=== PATIENT | female | born 1945 | race Caucasian/White ===

== ENCOUNTER 2019-11-24 09:14 | Outpatient (CLI) | payer MEDICARE, SELFPAY ==
--- NOTE | 2019-11-24 11:00 | NEURO_ITS ---
Patient Number: [id number] Impression: # Complains of left 4th and 5th finger numbness. History of bilateral carpal tunnel release. 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 # No Carpal Tunnel Syndrome. # Needle/EMG exam mildly neurogenic in left 1st DI and ADM. Nerve Conduction Studies Anti Sensory Summary Table Stim Site NR Peak (ms) P-T Amp (?V) Site1 Site2 Delta-P (ms) Dist (cm) Feng (m/s) Left Median Anti Sensory (2-3nd Digit) Wrist 3.0 27.0 Wrist 2-3nd Digit 3.0 14.0 47 Wrist 3.1 55.0 Wrist 2-3nd Digit 3.0 14.0 47 Left Radial Anti Sensory (Base 1st Digit) Wrist 2.1 22.8 Wrist Base 1st Digit 2.1 0.0 Left Ulnar Anti Sensory (5th Digit) Wrist 3.2 37.7 Wrist 5th Digit 3.2 14.0 44 Motor Summary Table Stim Site NR Onset (ms) O-P Amp (mV) Site1 Site2 Delta-0 (ms) Dist (cm) Feng (m/s) Left Median Motor (Abd Poll Brev) Wrist 3.0 2.8 Elbow Wrist 5.4 31.0 57 Elbow 8.4 1.4 ELB/ADM Wrist 0.8 0.0 Left Ulnar Motor (Abd Dig Minimi) Wrist 3.0 4.2 A Elbow Wrist 6.6 31.0 47 A Elbow 9.6 1.6 B Elbow Wrist 3.6 24.0 67 B Elbow 6.6 2.9 F Wave Studies NR F-Lat (ms) L-R F-Lat (ms) Left Median (Mrkrs) (Abd Poll Brev) 29.33 Left Ulnar (Mrkrs) (Abd Dig Min) 30.03 EMG Side Muscle Nerve Root Ins Act Fibs Amp Dur Recrt Comment Left 1stDorInt Ulnar C8-T1 Nml Nml Nml Nml Nml Left Ext Indicis Radial (Post Int) C7-8 Nml Nml Nml Nml Nml Left Ext Digitorum Radial (Post Int) C7-8 Nml Nml Nml Nml Nml Left BrachioRad Radial C5-6 Nml Nml Nml Nml Nml Left PronatorTeres Median C6-7 Nml Nml Nml Nml Nml Left Abd Poll Brev Median C8-T1 Nml Nml Nml Nml Nml Left ABD Dig Min Ulnar C8-T1 Nml Nml Nml Nml Nml MTDD
== END 2019-11-24 09:15 | disposition home or self-care (01) ==
PROVIDERS: PCP Family Medicine; Visit Provider Physician Assistant Medical
DX: G56.22 Lesion of ulnar nerve, left upper limb (principal)
CPT/HCPCS: 95886; 95909

== ENCOUNTER → 2019-12-17 10:47 | Outpatient (CLI) | payer MEDICARE, SELFPAY ==
--- NOTE | ~2019-12-17 | CT_ITS ---
EXAMINATION: CT abdomen pelvis wo con DATE: 12/17/2019 11:00 INDICATION: Right-sided abdominal pain, microscopic hematuria TECHNIQUE: Computed tomography (CT) of the abdomen and pelvis was performed without intravenous contr ast. The dose-length product (DLP) was 474.91 mGy-cm. Automated exposure control and iterative recons truction technique were employed. COMPARISON: 10/27/2014 FINDINGS: Minimal dependent atelectasis is present in the lung bases. The heart size is normal. There is a moderate-sized sliding hiatal hernia. The liver, spleen, pancreas, and adrenal glands are severino l. A stone is present in the nondistended gallbladder. There is a 2.3 cm stone in the upper pole danielle saad of the right kidney. There is a 3 mm nonobstructing stone of the left kidney upper pole. No stone s are identified in the ureters or bladder. There is no hydronephrosis or hydroureter. Multiple pelvi c phleboliths are noted. No pathologically enlarged abdominal or pelvic lymph nodes are identified. T he appendix is normal. There is no free intraperitoneal gas or evidence of bowel obstruction. There i s severe lumbar spondylosis. IMPRESSION: 1. 2.3 cm calyceal stone in the right kidney upper pole. 2. Left nephrolithiasis. Reviewed, dictated and finalized at location A.
== END ==
PROVIDERS: PCP Family Medicine; Visit Provider Physician Assistant Medical
DX: N20.0 Calculus of kidney (principal)
CPT/HCPCS: 74176

== ENCOUNTER 2022-04-24 08:00 | Outpatient (NON) | payer MEDICARE, SELFPAY | END 2022-04-24 08:01 | disposition home or self-care (01) | LOC: ANHLAB 04-25 09:19 | PROVIDERS: PCP Family Medicine; Visit Provider Internal Medicine Gastroenterology | DX: R13.10 Dysphagia, unspecified (principal); K29.50 Unspecified chronic gastritis without bleeding | CPT/HCPCS: 88305 ==

== ENCOUNTER 2022-04-24 12:22 | Day surgery (SDC) | payer MEDICARE, SELFPAY ==
[2022-04-10 09:35] VITALS: BMI 27.0
--- NOTE | 2022-04-23 10:33 | WPDANESEPPF ---
Anes - Initial Pre Proc Eval Procedure: Operation Date: 04/24/22 14:00 Proposed Procedures p Esophagogastroduodenoscopy - Andrea Snachez MD Date/Time: 04/23/22 10:33 Surgeon: Andrea Sanchez MD Pre Op Diagnosis: Dysphagia Patient Data Age: 76 Gender: F Height: 1.75 m Weight: 83 kg Allergies Allergy/AdvReac Type Severity Reaction Status Date / Time albuterol Allergy Unknown unknown Verified 04/24/22 13:24 azithromycin Allergy Unknown Unknown Verified 04/24/22 13:24 iodine Allergy Unknown unk Verified 04/24/22 13:24 ioversol Allergy Unknown Unknown Verified 04/24/22 13:24 iron Allergy Unknown Unknown Verified 04/24/22 13:24 CONTRAST DYE Allergy Severe Unknown Uncoded 04/10/22 09:39 Home Medications Medication Instructions Recorded Confirmed Type levothyroxine 100 mcg tablet 100 mcg PO DAILY 04/08/19 04/10/22 History pantoprazole 40 mg tablet,delayed 40 mg PO QAM #30 tabs 04/24/22 Rx release Patient hx anesthesia problems: none Family hx anesthesia problems: none Results Review: All pre-operative results and documents have been reviewed as part of the pre-operative evaluation. [facility] [place] Past Medical History Medical History Arthritis of carpometacarpal (CMC) joint of left thumb BMI 25.0-25.9,adult BMI 26.0-26.9,adult BMI 27.0-27.9,adult History of kidney stones Hypothyroidism, unspecified Kidney stone Surgical History Surgical History History of carpal tunnel release History of tubal ligation Family History Family History Mother Hypertension Family history of arthritis Father Asthma Sibling No problems noted. Social History Social History Smoking packs per day: 0.5 Smoking cigarettes per day: 10.0 Years smoked: 5 Smoking pack-years: 2.50 Smoking status: Former smoker Tobacco type: cigarettes Second hand tobacco smoke exposure: No Smoking end date: 04/28/84 Alcohol intake: never Substance use: never Substance use type: does not use Living arrangements: alone Additional occupation/education comments: refinery-labor Gender identity (if verbalized by the patient): Female Spiritual care concerns: No Anes - Eval Final PreProcedure Day of Procedure 04/23/22 10:33 Patient weight: overweight Heart: regular rate and rhythm Lungs: clear to auscultation Airway: Mallampati scale class II Neurological: alert and oriented Last oral intake: >/= 8 hours ASA classification: II Emergent: no Anesthetic plan: proceed Anesthesia type and monitoring: general GIVS and standard monitoring Results Review: All pre-operative results and documents have been reviewed as part of the pre-operative evaluation. Informed Consent: The patient's anesthetic plan and its attendant risks and benefits were discussed with the patient/family/POA. Questions were solicited and answers provided to the satisfaction of the patient/family/POA.
--- NOTE | 2022-04-24 11:01 | P.HP_ITS ---
History of Present Illness History of Present Illness Consent: Risks, benefits, and alternatives have been discussed and questions answered. Patient agrees to proceed with procedure. Chief complaint: Dysphagia Narrative: Vandana Branham is a 76 year old female Referred for investigation of stating that her voice changes, and needs to clear the throat frequently. When she had thyroid surgery, she was told that her spine was 'too straight'. She denies difficulty swallowing. Review of Systems Review of Systems: All systems reviewed & are unremarkable except as noted in HPI and below PMFSH Past Medical History Medical History Arthritis of carpometacarpal (CMC) joint of left thumb BMI 25.0-25.9,adult BMI 26.0-26.9,adult BMI 27.0-27.9,adult History of kidney stones Hypothyroidism, unspecified Kidney stone Surgical History Surgical History History of carpal tunnel release History of tubal ligation Family History Family History Mother Hypertension Family history of arthritis Father Asthma Sibling No problems noted. Social History Social History Smoking packs per day: 0.5 Smoking cigarettes per day: 10.0 Years smoked: 5 Smoking pack-years: 2.50 Smoking status: Former smoker Tobacco type: cigarettes Second hand tobacco smoke exposure: No Smoking end date: 04/28/84 Alcohol intake: never Substance use: never Substance use type: does not use Living arrangements: alone Additional occupation/education comments: [employer] Gender identity (if verbalized by the patient): Female Spiritual care concerns: No Meds Home Medications and Allergies Home Medications Medication Instructions Recorded Confirmed Type levothyroxine 100 mcg tablet 100 mcg PO DAILY 04/08/19 04/10/22 History Allergies Allergy/AdvReac Type Severity Reaction Status Date / Time albuterol Allergy Unknown unknown Verified 04/24/22 13:24 azithromycin Allergy Unknown Unknown Verified 04/24/22 13:24 iodine Allergy Unknown unk Verified 04/24/22 13:24 ioversol Allergy Unknown Unknown Verified 04/24/22 13:24 iron Allergy Unknown Unknown Verified 04/24/22 13:24 CONTRAST DYE Allergy Severe Unknown Uncoded 04/10/22 09:39 Exam Const: General: alert Orientation/consciousness: patient oriented x3 Resp: Auscultation: clear to auscultation bilaterally Cardio: Rhythm: regular rhythm GI: GI Palp: Yes Soft to palpation and No Tenderness to palpation present (GI) Neuro: General: patient oriented x3 Assessment and Plan Assessment and plan (1) Hoarseness: Code(s): R49.0 - Dysphonia Status: Acute Assessment and Plan: EGD with possible biopsy or dilatation or cautery.
[2022-04-24 13:10] VITALS: BP 136/83; PULSE 79; RESP 16; TEMP 36.8; O2SAT 98
[2022-04-24] MEDS: LACTATED RINGERS 1,000 ML 150 ML IV CONT (13:38)
[2022-04-24 14:18] VITALS: BP 109/67; PULSE 75; RESP 16; O2SAT 94
[2022-04-24 14:28] VITALS: BP 110/70; PULSE 69; RESP 16; O2SAT 100
--- NOTE | 2022-04-24 14:34 | WPDANESPN ---
Anes - Prog Note Post-Op Date/Time: 04/24/22 14:34 Cardiovascular status: normal Respiratory status: normal Airway patency: baseline Mental status: baseline Post-Op hydration status: normal Vital Signs: Last Vital Signs Temp 36.8 C 04/24/22 13:10 Pulse 79 04/24/22 13:10 Resp 16 04/24/22 13:10 BP 136/83 04/24/22 13:10 Pulse Ox 98 04/24/22 13:10 O2 Del Method Room Air 04/24/22 13:10 Pain Score (VAS): 0 I/O: Intake & Output 04/23/22 04/24/22 04/24/22 23:59 07:59 15:59 Intake Total 200 Balance 200 Post-procedural complaints: none Patient Feedback: Patient satisfied with anesthetic care. Other Findings: Patient vital signs back to baseline. Patient denies nausea and vomiting. Patient's pain under control. Patient OK for discharge.
--- NOTE | 2022-04-24 14:45 | SUR.PHASEII ---
PT AWAKE AND ALERT. CLEARING THROAT JUST LIKE PREOP. NO CHANGE. PT CALLED HER RIDEMARLY, HE IS ON HIS WAY BACK TO [facility]
[2022-04-24 15:07] VITALS: BP 105/69; PULSE 72; RESP 16; O2SAT 99
--- NOTE | 2022-04-24 15:10 | SUR.PHASEII ---
PT AWAKE AND ALERT. TALKATIVE. DENIES PAIN. WAITING FOR RIDE HOME.
== END 2022-04-24 15:12 | disposition home or self-care (01) ==
PROVIDERS: PCP Family Medicine; Visit Provider Internal Medicine Gastroenterology
PROC: 0DJ08ZZ Inspection of Upper Intestinal Tract, Via Natural or Artificial Opening Endoscopic (ICD-10-PCS; CPT 43235; principal; 2022-04-24 14:00)
DX: R13.10 Dysphagia, unspecified (principal)
CPT/HCPCS: 43239

== ENCOUNTER 2022-11-21 09:08 | Day surgery (SDC) | payer MEDICARE, SELFPAY ==
[2022-11-06 09:09] VITALS: BMI 26.1
[2022-11-07 09:34] VITALS: BMI 26.0
--- NOTE | 2022-11-20 13:55 | WPDANESEPPF ---
Anes - Initial Pre Proc Eval Procedure: Operation Date: 11/21/22 11:00 Proposed Procedures p Diagnostic Colonoscopy - Andrea Sanchez MD Date/Time: 11/20/22 13:55 Surgeon: Andrea Sanchez MD Pre Op Diagnosis: Melena Patient Data Age: 77 Gender: F Height: 1.75 m Weight: 80 kg Allergies Allergy/AdvReac Type Severity Reaction Status Date / Time azithromycin Allergy Unknown Unknown Verified 11/21/22 09:47 albuterol AdvReac Intermediate Nausea and Verified 11/21/22 09:47 Vomiting Iodinated Contrast Media AdvReac Mild Dizziness Verified 11/21/22 09:47 iodine AdvReac Mild Dizziness Verified 11/21/22 09:47 ioversol AdvReac Mild Dizziness Verified 11/21/22 09:47 iron AdvReac Mild Dizziness Verified 11/21/22 09:47 Home Medications Medication Instructions Recorded Confirmed Type levothyroxine 100 mcg tablet 100 mcg PO DAILY 04/08/19 11/07/22 History pantoprazole 40 mg tablet,delayed 40 mg PO QAM #90 tabs 10/21/22 11/07/22 Rx release Patient hx anesthesia problems: none Family hx anesthesia problems: none Results Review: All pre-operative results and documents have been reviewed as part of the pre-operative evaluation. [facility] Past Medical History Medical History (Updated 11/20/22 @ 13:56 by Max Sloan DO) Anemia Arthritis of carpometacarpal (CMC) joint of left thumb BMI 25.0-25.9,adult BMI 26.0-26.9,adult BMI 27.0-27.9,adult Dysphagia Gastroesophageal reflux disease History of kidney stones Hoarseness Hypothyroidism, unspecified Kidney stone Left elbow pain Pneumonia due to COVID-19 virus Surgical History Surgical History History of carpal tunnel release History of hysterectomy History of tubal ligation Family History Family History Mother Hypertension Family history of arthritis Father Asthma Sibling No problems noted. 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 Informed Consent: The patient's anesthetic plan and its attendant risks and benefits were discussed with the patient/family/POA. Questions were solicited and answers provided to the satisfaction of the patient/family/POA.
--- NOTE | 2022-11-20 22:29 | P.HP_ITS ---
History of Present Illness History of Present Illness Consent: Risks, benefits, and alternatives have been discussed and questions answered. Patient agrees to proceed with procedure. Chief complaint: Melena Narrative: Vandana Branham is a 77 year old female With been found to be anemic with dropping hemoglobin. She has not seen blood in her stools herself. Review of Systems Review of Systems: All systems reviewed & are unremarkable except as noted in HPI and below PMFSH Past Medical History Medical History Anemia Arthritis of carpometacarpal (CMC) joint of left thumb BMI 25.0-25.9,adult BMI 26.0-26.9,adult BMI 27.0-27.9,adult Dysphagia Gastroesophageal reflux disease History of kidney stones Hoarseness Hypothyroidism, unspecified Kidney stone Left elbow pain Pneumonia due to COVID-19 virus Surgical History Surgical History History of carpal tunnel release History of hysterectomy History of tubal ligation Family History Family History Mother Hypertension Family history of arthritis Father Asthma Sibling No problems noted. Social History Social History Smoking packs per day: 0.5 Smoking cigarettes per day: 10.0 Years smoked: 5 Smoking pack-years: 2.50 Smoking status: Former smoker Tobacco type: cigarettes Second hand tobacco smoke exposure: No Smoking end date: 04/28/84 Alcohol intake: never Substance use: never Substance use type: does not use Living arrangements: alone Occupation/Education: retired Additional occupation/education comments: [employer] Gender identity (if verbalized by the patient): Female Spiritual care concerns: No Meds Home Medications and Allergies Home Medications Medication Instructions Recorded Confirmed Type levothyroxine 100 mcg tablet 100 mcg PO DAILY 04/08/19 11/07/22 History pantoprazole 40 mg tablet,delayed 40 mg PO QAM #90 tabs 10/21/22 11/07/22 Rx release Allergies Allergy/AdvReac Type Severity Reaction Status Date / Time azithromycin Allergy Unknown Unknown Verified 11/21/22 09:47 albuterol AdvReac Intermediate Nausea and Verified 11/21/22 09:47 Vomiting Iodinated Contrast Media AdvReac Mild Dizziness Verified 11/21/22 09:47 iodine AdvReac Mild Dizziness Verified 11/21/22 09:47 ioversol AdvReac Mild Dizziness Verified 11/21/22 09:47 iron AdvReac Mild Dizziness Verified 11/21/22 09:47 Exam Const: General: alert Orientation/consciousness: patient oriented x3 Resp: Auscultation: clear to auscultation bilaterally Cardio: Rhythm: regular rhythm GI: GI Palp: Yes Soft to palpation and No Tenderness to palpation present (GI) Neuro: General: patient oriented x3 Assessment and Plan Assessment and plan (1) Iron deficiency anemia: Code(s): D50.9 - Iron deficiency anemia, unspecified Status: Acute Assessment and Plan: Colonoscopy with possible biopsy or polypectomy or cautery or injection of substances.
[2022-11-21 09:52] VITALS: BP 120/64; PULSE 70; RESP 16; TEMP 36.9; O2SAT 100
[2022-11-21] MEDS: LACTATED RINGERS 1,000 ML 150 ML IV CONT (10:01)
[2022-11-21 11:07] VITALS: BP 104/58; PULSE 70; RESP 16; O2SAT 100
[2022-11-21 11:17] VITALS: BP 103/61; PULSE 67; RESP 18; O2SAT 100
[2022-11-21 11:27] VITALS: BP 101/59; PULSE 65; RESP 18; O2SAT 99
--- NOTE | 2022-11-21 12:21 | WPDANESPN ---
Anes - Prog Note Post-Op Date/Time: 11/21/22 12:21 Cardiovascular status: normal Respiratory status: normal Airway patency: baseline Mental status: baseline Post-Op hydration status: normal Vital Signs: Last Vital Signs Temp 36.9 C 11/21/22 09:52 Pulse 65 11/21/22 11:27 Resp 18 11/21/22 11:27 BP 101/59 L 11/21/22 11:27 Pulse Ox 99 11/21/22 11:27 O2 Del Method Room Air 11/21/22 11:27 Pain Score (VAS): 0 I/O: Intake & Output 11/20/22 11/21/22 11/21/22 23:59 07:59 15:59 Intake Total 500 Balance 500 Post-procedural complaints: none Patient Feedback: Patient satisfied with anesthetic care. Other Findings: Patient vital signs back to baseline. Patient denies nausea and vomiting. Patient's pain under control. Patient OK for discharge.
--- NOTE | 2022-11-21 13:41 | SUR.PHASEII ---
1240; pt returned to room from waiting room. [employer] local company refrigerated truck driver leftwithout pt. Reached out to [facility] again. new local company refrigerated truck driver will be here at 1230. 1245; [employer] per [facility] arrived to take pt home. Pt awake and alert. Denies pain
== END 2022-11-21 12:45 | disposition home or self-care (01) ==
PROVIDERS: PCP Family Medicine; Visit Provider Internal Medicine Gastroenterology
PROC: 0DJD8ZZ Inspection of Lower Intestinal Tract, Via Natural or Artificial Opening Endoscopic (ICD-10-PCS; CPT 45378; principal; 2022-11-21 11:00)
DX: D50.9 Iron deficiency anemia, unspecified (principal); K57.30 Diverticulosis of large intestine without perforation or abscess without bleeding; K64.8 Other hemorrhoids
CPT/HCPCS: 45378

== ENCOUNTER 2023-01-01 15:52 | Outpatient (CLI) | payer MEDICARE, SELFPAY ==
[2023-01-01 16:11] LABS: Basophils Absolute Auto 0.1 K/mm3 (0.0-0.1); Basophils Percent Auto 1.2 % (0.2-1.2); Eosinophils Absolute Auto 0.2 K/mm3 (0-0.3); Eosinophils Percent Auto 3.5 % (0-4.4); Hemoglobin 8.2 g/dL (12.0-15.0); Immature Granulocyte Absolute 0.01 K/mm3 (0.00-0.031); Immature Granulocyte Percent A 0.1 % (0-0.5); Lymphocytes Absolute Auto 2.27 K/mm3 (0.9-3.2); Lymphocytes Percent Auto 32.9 % (18.3-44.2); Mean Corpuscular HGB Conc 28.3 g/dl (32-36); Mean Corpuscular Hemoglobin 19.9 pg (26-34); Mean Corpuscular Volume 70.2 fl (80-100); Mean Platelet Volume 8.8 fl (7.4-10.4); Monocytes Absolute Auto 0.6 K/mm3 (0.1-0.6); Monocytes Percent Auto 8.2 % (2.6-8.5); Neutrophils Absolute Auto 3.7 K/mm3 (1.3-6.7); Neutrophils Percent Auto 54.1 % (45.5-73.1); Platelet Count Result 398 k/mm3 (150-375); Red Blood Count 4.13 M/mm3 (4.2-5.4); Red Cell Distribution Width 18.6 % (11.5-14.5); White Blood Count 6.9 K/mm3 (4.5-10.0)
[2023-01-01 16:16] LABS: Anisocytosis 1+ (NORMAL); Hypochromasia 2+ (NORMAL); Schistocytes None Seen (NORMAL)
[2023-01-01 16:17] LABS: Ovalocytes 1+ (NORMAL); Poikilocytosis 1+ (NORMAL)
[2023-01-01 16:42] LABS: Iron 20 ug/dL (37-170)
[2023-01-01 16:44] LABS: Alanine Aminotransferase 19 U/L (6-35); Albumin Level 4.5 g/dL (3.5-5.1); Alkaline Phosphatase 68 U/L (38-126); Anion Gap 7 mmol/L (8-16); Aspartate Amino Transferase 31 U/L (14-36); Bilirubin,Total 0.7 mg/dL (0.2-1.3); Blood Urea Nitrogen 16 mg/dL (7-17); Carbon Dioxide 28 mmol/L (22-30); Chloride 102 mmol/L (98-107); Estimated Glomerular Filt Rate > 60; Glucose 108 mg/dL (65-110); Potassium 4.1 mmol/L (3.4-5.0); Sodium 137 mmol/L (137-145)
[2023-01-01 16:52] LABS: Percent Iron Saturation 4 % (20-50)
[2023-01-01 17:18] LABS: Ferritin 5.17 ng/mL (11.1-264)
[2023-01-01 17:52] LABS: Folic Acid > 20.0 ng/mL (2.76->20)
[2023-01-03 13:31] LABS: Albumin 4.1 g/dL (3.8-4.8); Alpha 1 Globulin 0.3 g/dL (0.2-0.3); Alpha 2 Globulin 0.7 g/dL (0.5-0.9); Beta 1 Globulin 0.6 g/dL (0.4-0.6); Protein, Total 7.1 g/dL (6.1-8.1)
== END 2023-01-01 15:53 | disposition home or self-care (01) ==
LOC: ANHLAB 15:56
PROVIDERS: Internal Medicine; PCP Family Medicine; Visit Provider Internal Medicine Hematology & Oncology
DX: D64.9 Anemia, unspecified (principal)
CPT/HCPCS: 36415; 80053; 82607; 82728; 82746; 83540; 83550; 84155; 84165; 85025

== ENCOUNTER 2024-01-13 15:07 | Outpatient (CLI) | payer MEDICARE, SELFPAY ==
[2024-01-13 15:20] LABS: Basophils Absolute Auto 0.1 K/mm3 (0.0-0.1); Basophils Percent Auto 1.3 % (0.2-1.2); Eosinophils Absolute Auto 0.1 K/mm3 (0-0.3); Eosinophils Percent Auto 1.9 % (0-4.4); Hematocrit 42.5 % (37.0-47.0); Hemoglobin 13.4 g/dL (12.0-15.0); Immature Granulocyte Absolute 0.01 K/mm3 (0.00-0.031); Immature Granulocyte Percent A 0.1 % (0-0.5); Lymphocytes Absolute Auto 2.34 K/mm3 (0.9-3.2); Lymphocytes Percent Auto 33.6 % (18.3-44.2); Mean Corpuscular HGB Conc 31.5 g/dl (32-36); Mean Corpuscular Hemoglobin 28.1 pg (26-34); Mean Corpuscular Volume 89.1 fl (80-100); Mean Platelet Volume 8.3 fl (7.4-10.4); Monocytes Absolute Auto 0.6 K/mm3 (0.1-0.6); Monocytes Percent Auto 8.2 % (2.6-8.5); Neutrophils Absolute Auto 3.8 K/mm3 (1.3-6.7); Neutrophils Percent Auto 54.9 % (45.5-73.1); Platelet Count Result 312 k/mm3 (150-375); Red Blood Count 4.77 M/mm3 (4.2-5.4); Red Cell Distribution Width 12.5 % (11.5-14.5)
[2024-01-13 16:28] LABS: Iron 84 ug/dL (37-170)
[2024-01-13 16:37] LABS: Percent Iron Saturation 24 % (20-50)
[2024-01-13 17:43] LABS: Folic Acid 5.6 ng/mL (2.76->20)
== END 2024-01-13 15:08 | disposition home or self-care (01) ==
LOC: ANHLAB 15:09
PROVIDERS: PCP Family Medicine; Visit Provider Internal Medicine Hematology & Oncology
DX: D64.9 Anemia, unspecified (principal)
CPT/HCPCS: 36415; 82607; 82728; 82746; 83540; 83550; 85025

== ENCOUNTER 2024-06-10 09:17 | Outpatient (CLI) | payer MEDICARE, SELFPAY ==
--- OUTSIDE RECORDS SUMMARY | 2024-06-10 09:40 | XMS_ITS | Clinical Summary ---
Author Organization [facility] Address [address] [place] [address] Phone Care Team Providers Care Civil Cad Designer Name Role Phone Roby Stafford MD Primary Care Provider [phone] Allergies Active Allergy Reactions Criticality Noted Date Comments Albuterol Other (see Comments) Medium 05/17/2017 Patient states inhalers make her more tight in chest. Patient states inhalers make her more tight in chest. Iodinated Contrast Media Unknown 02/18/2020 Iron Unknown 01/10/2021 Medications LEVOTHYROXINE SODIUM PO Take 100 mcg by mouth daily. Active Potassium Citrate 15 MEQ (1620 MG) Tablet Controlled ReleaseIndicati ons:Renal stone Take 15 mEq by mouth daily. 60 Tablet 3 1 Active famotidine (PEPCID) 20 MG Tablet Take 1 Tablet by mouth 2 times daily as needed for Heartburn. 30 Tablet 1 Active Additional Information Patient not taking.Reported on 04/23/2021 benzonatate (Tessalon Perles) 100 MG Capsule Take 200 mg by mouth 3 times daily as needed. Active guaiFENesin-cod eine (TUSSI-ORGANIDI N NR) 100-10 MG/5ML Syrup Take 5 mL by mouth every 4 hours as needed. Active albuterol 108 (90 Base) MCG/ACT Aerosol Solution take 2 Puffs by inhalation every 4 hours as needed. Active Active Problems Problem Noted Date Diagnosed Date Microcytic anemia 04/15/2021 COVID-19 04/15/2021 Kidney stone on right side 02/19/2020 Pleural effusion on right 02/19/2020 Acute cystitis with hematuria 02/19/2020 Hypothyroid 02/19/2020 Right renal stone 02/15/2020 Resolved Problems Problem Noted Date Diagnosed Date Resolved Date CAP (community acquired pneumonia) 04/15/2021 04/17/2021 Acute respiratory failure with hypoxia 04/15/2021 04/17/2021 Encounters Date Type Department Care Team Description 04/06/2024 12:59 PM CAMPAIGN ANALYST - 04/06/2024 11:59 PM CAMPAIGN ANALYST [facility] [address] [place] [address] Clarissa Betancur Discharge Disposition: Discharged to home or Selfcare 04/06/2024 Travel 04/02/2024 [facility] Central Scheduling [address] [place] [address] Clarissa Betancur Intra-abdominal and pelvic swelling, mass and lump, unspecified site; Abnormal findings on diagnostic imaging of other abdominal regions, including retroperitoneum 03/27/2024 9:08 AM CAMPAIGN ANALYST - 03/27/2024 11:59 PM CAMPAIGN ANALYST [facility] [address] [place] [address] Clarissa Betancur Discharge Disposition: Discharged to home or Selfcare 03/27/2024 Travel 03/10/2024 [facility] [address] [place] [address] Clarissa Betancur Abdominal mass, unspecified abdominal location (Primary Dx) from Last 3 Months Family History Medical History Relation Name Comments Chronic Obstructive Pulmonary Disease Father Hypertension Mother Relation Name Status Comments Father Mother Social History Tobacco Use Types Packs/Day Years Used Date Smoking Tobacco: Former Cigarettes 1 1 - 1984 Smokeless Tobacco: Never Tobacco Cessation:Counseling Given: No Alcohol Use Standard Drinks/Week Comments Never 0 (1 standard drink = 0.6 oz pur e alcohol) AUDIT-C Answer Date Recorded Q1: How often do you have a drink containing alc ohol? Never 01/19/2020 Average Number of Drinks Not on file 020 Frequency of Binge Drinking Not on file 12/28 Sexually Active Control Partners Comments Not Currently Comments Unknown Sex and Gender Information Value Date Recorded Sex Assigned at Not on file Legal Sex Female 10:22 PM CDT Gender Identity Not on file Sexual Orientation Not on file Last Filed Vital Signs Vital Sign Reading Time Taken Comments Blood Pressure 119/64 04/17/2021 8:30 AM CAMPAIGN ANALYST Pulse 80 04/17/2021 8:30 AM CAMPAIGN ANALYST Temperature 36.4 C (97.5 F) 04/17/2021 8:30 AM CAMPAIGN ANALYST Respiratory Rate 20 04/17/2021 8:30 AM CAMPAIGN ANALYST Oxygen Saturation 88% 04/17/2021 8:30 AM CAMPAIGN ANALYST Inhaled Oxygen Concentration - - Weight 78.5 kg (173 lb) 04/15/2021 8:13 AM CAMPAIGN ANALYST Height 175.3 cm (5' 9 ) 04/15/2021 8:13 AM CAMPAIGN ANALYST Body Mass Index 25.55 04/15/2021 8:13 AM CAMPAIGN ANALYST Plan of Treatment Health Maintenance Due Date Last Done Comments DEXA Bone Density 1945 Hepatitis C Virus (HCV) Screening 1945 TdaP Immunization 1945 Pneumococcal Immunization (5 0+ years) (1 of 1 - PCV) 1996 Zoster Immunization (1 of 2) 1996 Respiratory Syncytial Virus (RSV) Immunization (Adult) (1 - 1-dose 75+ series) 2021 Influenza Immunization (#1) 2023 SARS-COV-2 Immunization ( - 2023-25 season) 2023 Hepatitis B Immunization Aged Out No longer eligible based on patient's age to complete this topic Meningococcal Immunization (ACWY) Aged Out No longer eligible based on patient's age to complete this topic Rotavirus Immunization Aged Out No lo nger eligible based on patient's age to complete this topic Medical Devices Implanted Type Area Movable Bulkhead Installer Device Identifier Shelf Expiration Date Model / Serial / Lot Stent Ureteral 6fr 2.1fr 26cm 2 Pigtail Curve 2 Durometer Taper Tip Loprfl Graduated Verve Mobileis Ultra - [id number] Implanted:Qty: 1 on 02/19/2020 by Monica Marlow MD at [facility] IMPLANT Right: Ureter [employer] 11/10/2022 [id number] 30 / [id number] 30 / [id number] Neprostomy Catheter Percuflex Locking Loop Implanted:Qty: 1 on 02/15/2020 by Monica Marlow MD at [facility] Right: [employer] UROLOGY 09/21/2021 [id number] 20 / [id number] 20 / [id number] Procedures Procedure Name Priority Date/Time Associated Diagnosis Comments CT ABDOMEN PELVIS W/O CONTRAST Routine 04/06/2024 1:20 PM CAMPAIGN ANALYST Intra-abdominal and pelvic swelling, mass and lump, unspecified site Abnormal findings on diagnostic imaging of other abdominal regions, including retroperitoneum US ABDOMEN LIMITED, LEVEL 1 - SINGLE ORGAN Routine 03/27/2024 9:54 AM CAMPAIGN ANALYST Abdominal mass, unspecified abdominal location from Last 3 Months Results * CT ABDOMEN PELVIS W/O CONTRAST (04/06/2024 1:20 PM CAMPAIGN ANALYST) Anatomical Region Laterality Modality Abdomen N/A Computed Tomogra phy 04/12/2024 1:04 PM CAMPAIGN ANALYST Impressions 04/12/2024 1:07 PM CAMPAIGN ANALYST IMPRESSION: Area of palpable abnormality corresponds in location with a small fat containing right groin hernia. Large hiatal hernia. Colonic diverticulosis. Narrative 04/12/2024 1:07 PM CAMPAIGN ANALYST EXAM DESCRIPTION: CT ABDOMEN PELVIS W/O CONTRAST REASON FOR STUDY: Abdominal lump/mass reported by patient, US on 03/27/[address] with BB marker for further eval. Hx of iodinated contrast allergy. TECHNIQUE: CT scan of the abdomen and pelvis performed without intravenous and without oral contrast using helical scanning technique. Reconstructed coronal and sagittal MPR images reviewed. All images stored on PACS. Automated exposure control was used as a dose optimization technique for this examination. COMPARISON: Correlation is made with CT abdomen and pelvis from 03/22/2020 and with abdominal ultrasound from 03/27/2024 FINDINGS: The sensitivity for detection of visceral lesions is diminished without the use of intravenous contrast. LOWER CHEST: Large hiatal hernia. Subpleural parenchymal bands in the lung bases which could represent scarring or atelectasis. LIVER: Normal length. GALLBLADDER: No radiodense gallstones. SPLEEN: Normal length. PANCREAS: No peripancreatic inflammation or fluid collection. ADRENALS: No adrenal mass. KIDNEYS/URINARY TRACT: No hydronephrosis. No urolithiasis. GI: No bowel obstruction. Normal appendix. There are sigmoid colonic diverticula without acute diverticulitis. PERITONEUM: No ascites or free air. VASCULATURE: No abdominal aortic aneurysm. MUSCULOSKELETAL: No acute skeletal abnormality. OTHER: Prior hysterectomy. Area of palpable abnormality as indicated by a BB marker overlies the right groin. There is an underlying small groin hernia containing fat. Small groin lymph nodes appear stable compared with 03/22/2020. No new adenopathy or mass is seen. THIS IS AN ELECTRONICALLY VERIFIED FINAL REPORT 04/12/2024 1:04 PM - Electronically signed by Cristhian Albarran M.D. JR: Report ID: [id number] Reading Location: [place] [address] Procedure Note Cristhian Albarran MD - 04/12/2024 EXAM DESCRIPTION: CT ABDOMEN PELVIS W/O CONTRAST REASON FOR STUDY: Abdominal lump/mass reported by patient, US on 03/27/[address] with BB marker for further eval. Hx of iodinated contrast allergy. TECHNIQUE: CT scan of the abdomen and pelvis performed without intravenous and without oral contrast using helical scanning technique. Reconstructed coronal and sagittal MPR images reviewed. All images stored on PACS. Automated exposure control was used as a dose optimization technique for this examination. COMPARISON: Correlation is made with CT abdomen and pelvis from 03/22/2020 and with abdominal ultrasound from 03/27/2024 FINDINGS: The sensitivity for detection of visceral lesions is diminished without the use of intravenous contrast. LOWER CHEST: Large hiatal hernia. Subpleural parenchymal bands in the lung bases which could represent scarring or atelectasis. LIVER: Normal length. GALLBLADDER: No radiodense gallstones. SPLEEN: Normal length. PANCREAS: No peripancreatic inflammation or fluid collection. ADRENALS: No adrenal mass. KIDNEYS/URINARY TRACT: No hydronephrosis. No urolithiasis. GI: No bowel obstruction. Normal appendix. There are sigmoid colonic diverticula without acute diverticulitis. PERITONEUM: No ascites or free air. VASCULATURE: No abdominal aortic aneurysm. MUSCULOSKELETAL: No acute skeletal abnormality. OTHER: Prior hysterectomy. Area of palpable abnormality as indicated by a BB marker overlies the right groin. There is an underlying small groin hernia containing fat. Small groin lymph nodes appear stable compared with 03/22/2020. No new adenopathy or mass is seen. THIS IS AN ELECTRONICALLY VERIFIED FINAL REPORT 04/12/2024 1:04 PM - Electronically signed by Cristhian Albarran M.D. JR: Report ID: [id number] Reading Location: [id number] IMPRESSION: Area of palpable abnormality corresponds in location with a small fat containing right groin hernia. Large hiatal hernia. Colonic diverticulosis. Clarissa Betancur [facility] CT ORDERABLES Final Result * US ABDOMEN LIMITED, LEVEL 1 - SINGLE ORGAN OR SOFT TISSUE (03/27/2024 9:54 AM CAMPAIGN ANALYST) Anatomical Region Laterality Modality Abdomen N/A Ultrasound 03/30/2024 10:0 6 AM CAMPAIGN ANALYST Impressions 03/30/2024 10:09 AM CAMPAIGN ANALYST IMPRESSION: 1. Limited sonographic examination of the soft tissues of the right lower quadrant demonstrates a subtle circumscribed region of subcutaneous fat measuring 3.3 cm. This is of uncertain significance but may represent a fat containing hernia or a lipoma. Additional note is made of a prominent 1.8 cm oval hypoechoic mass which likely represents a lymph node. Follow-up CT of the abdomen and pelvis with IV contrast and palpation marker may be performed for further evaluation. Narrative 03/30/2024 10:09 AM CAMPAIGN ANALYST EXAM DESCRIPTION: US ABDOMEN LIMITED, LEVEL 1 - SINGLE ORGAN OR SOFT TISSUE REASON FOR STUDY: intra-abdominal and pelvic swelling,mass and lump,unspecified site TECHNIQUE: A Dynamic assessment was performed of the soft tissues right lower quadrant by the carburetor mechanic, with selected grayscale and color Doppler images acquired and recorded in PACS. COMPARISON: None FINDINGS: Limited sonographic examination of the area of clinical concern within the soft tissues of the right lower quadrant demonstrates a subtle circumscribed area of subcutaneous fat best appreciated on the cine images with no definitive change on Valsalva. This is difficult to measure but is approximately 3.3 by 1.8 cm. Within the subcutaneous fat is an oval hypoechoic mass measuring 1.8 x 0.6 by 1.0 cm which likely represents a prominent lymph node. THIS IS AN ELECTRONICALLY VERIFIED FINAL REPORT 03/30/2024 10:06 AM - Electronically signed by Mert Sanchez M.D. AG: FARRAH Report ID: [id number] Reading Location: [place] [address] Procedure Note Mert Sanchez MD - 03/30/2024 EXAM DESCRIPTION: US ABDOMEN LIMITED, LEVEL 1 - SINGLE ORGAN OR SOFT TISSUE REASON FOR STUDY: intra-abdominal and pelvic swelling,mass and lump,unspecified site TECHNIQUE: A Dynamic assessment was performed of the soft tissues right lower quadrant by the carburetor mechanic, with selected grayscale and color Doppler images acquired and recorded in PACS. COMPARISON: None FINDINGS: Limited sonographic examination of the area of clinical concern within the soft tissues of the right lower quadrant demonstrates a subtle circumscribed area of subcutaneous fat best appreciated on the cine images with no definitive change on Valsalva. This is difficult to measure but is approximately 3.3 by 1.8 cm. Within the subcutaneous fat is an oval hypoechoic mass measuring 1.8 x 0.6 by 1.0 cm which likely represents a prominent lymph node. THIS IS AN ELECTRONICALLY VERIFIED FINAL REPORT 03/30/2024 10:06 AM - Electronically signed by Mert Sanchez M.D. AG: FARRAH Report ID: [id number] Reading Location: [place] [address] IMPRESSION: 1. Limited sonographic examination of the soft tissues of the right lower quadrant demonstrates a subtle circumscribed region of subcutaneous fat measuring 3.3 cm. This is of uncertain significance but may represent a fat containing hernia or a lipoma. Additional note is made of a prominent 1.8 cm oval hypoechoic mass which likely represents a lymph node. Follow-up CT of the abdomen and pelvis with IV contrast and palpation marker may be performed for further evaluation. us Clarissa Betancur [facility] US ORDERABLES Final Result from Last 3 Months Insurance MEDICARE C [employer] Advance Directives * Full Code (Latest Code Status on File) Date Activated Date Inactivated Comments 04/16/2021 9:23 AM 04/17/2021 4:34 PM CPR-Full T reatment: FULL ARREST: Attempt Resuscitation/CPR wit intubation and mechanical ventilation. PRE-ARREST: Use entire range of life support measures to stabilize the patient. * Full Code Date Activated Date Inactivated Comments 02/18/2020 7:59 PM 02/21/2020 3:46 PM CPR-Full T reatment: FULL ARREST: Attempt Resuscitation/CPR wit intubation and mechanical ventilation. PRE-ARREST: Use entire range of life support measures to stabilize the patient. Care Teams Civil Cad Designer Relationship Specialty Start Date End Date Roby Stafford MD [address] [place], [place] [id number] PCP - General Family Medicine 01/19/20
--- OUTSIDE RECORDS SUMMARY | 2024-06-10 09:40 | XMS_ITS | Referral Summary ---
Author Organization [facility] Address [address] [place] [address] Care Team Providers Care New Client Banking Services Clerk Name Role Phone Roby Stafford MD Primary Care Provider [phone] Source Comments [facility],non-owned Affiliates and Associated Physician Practices is amultiple site organization consisting of ambulatory clinics and hospital sitesin [place], [place], [place] and [place]. This disclosure is being madepursuant to the Care Everywhere program and may not contain all information available regarding this patient. Last updated 18.[facility] Allergies Active Allergy Reactions Criticality Noted Date Comments Albuterol Other Medium 05/17/2017 Patient states inhalers make her more tight in chest. Medications * Be aware that medications may not be up to date on this document. Alwaysverify current medications with the patient. Medication Sig Dispensed Refills Start Date End Date Status LEVOTHYROXINE SODIUM PO Active methylPREDNISolone (MEDROL DOSEPAK) 4 MG tablet Take by mouth as directed 1 Each 05/17/2017 Active benzonatate (TESSALON) 100 MG capsuleIndications:C ough Take 1 capsule by mouth 3 times daily as needed for Cough Reasons: Cough 30 capsule 05/29/2017 Active Social History Tobacco Use Types Packs/Day Years Used Date Smoking Tobacco: Former Smokeless Tobacco: Never Sex and Gender Information Value Date Recorded Sex Assigned at Not on file Gender Identity Not on file Sexual Orientation Not on file Last Filed Vital Signs Vital Sign Reading Time Taken Comments Blood Pressure 120/68 05/29/2017 10:29 AM AUDIO/VIDEO ENGINEER Pulse 84 05/29/2017 10:29 AM AUDIO/VIDEO ENGINEER Temperature 36.6 C (97.9 F) 05/29/2017 10:29 AM AUDIO/VIDEO ENGINEER Respiratory Rate - - Oxygen Saturation 96% 05/29/2017 10:29 AM AUDIO/VIDEO ENGINEER Inhaled Oxygen Concentration - - Weight 81.6 kg (180 lb) 05/29/2017 10:29 AM AUDIO/VIDEO ENGINEER Height 175.3 cm (5' 9 ) 05/29/2017 10:29 AM AUDIO/VIDEO ENGINEER Body Mass Index 26.58 05/29/2017 10:29 AM AUDIO/VIDEO ENGINEER Plan of Treatment Not on file Care Teams New Client Banking Services Clerk Relationship Specialty Start Date End Date Roby Stafford MD [address] [place] [id number] PCP - General 03/14/20
--- OUTSIDE RECORDS SUMMARY | 2024-06-10 09:40 | XMS_ITS | Clinical Summary ---
Author Organization [facility] [address] Address [address] [place] [address] Care Team Providers Care Oil And Gas Exploration Technician Name Role Phone Roby Stafford MD Primary Care Provider [phone] MD Unavailable [phone] Allergies Active Allergy Reactions Criticality Noted Date Comments Albuterol Other (See comments) Medium 05/17/2017 Patient states inhalers make her more tight in chest. Patient states inhalers make her more tight in chest. Patient states inhalers make her more tight in chest. Azithromycin Unknown 01/01/2023 Iodinated Contrast Media Unknown 02/18/2020 Iron Unknown 01/10/2021 Medications levothyroxine (SYNTHROID) 112 mcg tabletIndications:P ostoperative hypothyroidism Take 1 tablet (112 mcg total) by mouth daily 90 tablet 3 4 Active Active Problems Problem Noted Date Diagnosed Date BMI 29.0-29.9,adult 07/02/2022 Assessment & Plan (07/02/2022 10:19 AM DIANETIC COUNSELOR): Discussed healthy diet and importance of regular physical activity (20- 30min/day, 150min/wk). COVID-19 04/15/2021 Microcytic anemia 04/15/2021 Calculus of kidney 02/15/2020 Postoperative hypothyroidism 03/04/2017 Assessment & Plan (07/08/2023 5:38 PM CDT): Chronic, stable Update TFTs Continue levothyroxine Importance of taking the medication on an empty stomach was discussed Assessment & Plan (07/02/2022 10:26 AM DIANETIC COUNSELOR): Chronic problem. Currently taking levothyroxine 100mcg daily. Will update labs today. Verified phone #/address to contact re: results. Will send in 90 day with refills to [facility] in [place]. Assessment & Plan (05/17/2021 2:44 PM DIANETIC COUNSELOR): Chronic problem, stable. Check labs today and adjust LT4 dose as indicated. Reviewed that with weight loss sometimes dose adjustment is needed. Assessment & Plan (03/02/2020 1:19 PM DIANETIC COUNSELOR): Thyroid function tests, including TSH and free T4 were requested Will adjust dose of Levothyroxine accordingly . If there is a need to make changes, will recheck levels in 2-3 months. Instructions to patient on taking medication properly : in the morning, on an empty stomach , 1 h part from food and/or other meds. Also it was explained , to the patient that if any doses are missed, can take 2-3 tab together ,to make up for the missed dose(s) and to make sure at the end to the week, 7 tabs have been taken. Assessment & Plan (03/04/2019 2:08 PM DIANETIC COUNSELOR): Will check TSH and free T4 Will adjust dose of Levothyroxine accordingly . If there is a need to make changes, will recheck levels in 2-3 months. Instructions to patient on taking medication properly : in the morning, on an empty stomach , 1 h part from food and/or other meds. Assessment & Plan (03/03/2018 10:01 AM DIANETIC COUNSELOR): Will check TSH and free T4 Will adjust dose of Levothyroxine accordingly . If there is a need to make changes, will recheck levels in 2-3 months. Instructions to patient on taking medication properly : in the morning, on an empty stomach , 1 h part from food and/or other meds. If any doses are missed, can take 2-3 tab together ,to make up for the missed dose; make sure at the end to the week, 7 tabs have been taken. Assessment & Plan (03/04/2017 9:23 AM DIANETIC COUNSELOR): Check TSH, free T4 Adjust dose of Levothyroxine accordingly . Instructions to patient on taking medication properly Resolved Problems Problem Noted Date Diagnosed Date Resolved Date Acute cystitis with hematuria 02/19/2020 07/01/2022 Hypothyroid 02/19/2020 07/01/2022 Pleural effusion on right 02/19/2020 Surgical History Surgery Date Site/Laterality Comments TOTAL ABDOMINAL HYSTERECTOMY Hysterectomy, total CARPAL TUNNEL RELEASE Carpal tunnel release Medical History Medical History Date Comments Hypothyroidism Social History Tobacco Use Types Packs/Day Years Used Date Smoking Tobacco: Never Alcohol Use Standard Drinks/Week Comments Yes 0 (1 standard drink = 0.6 oz pur e alcohol) PHQ-2 Answer Date Recorded PHQ-2 Total Score (If total score is 3 or more points, staff should administer the PHQ-9) 0 03/02/2020 Comments Unknown Sex and Gender Information Value Date Recorded Sex Assigned at Not on file Legal Sex Female 10:47 AM DIANETIC COUNSELOR Gender Identity Not on file Sexual Orientation Not on file Obstetrics History Last Filed Vital Signs Vital Sign Reading Time Taken Comments Blood Pressure 112/74 07/08/2023 9:54 AM CDT Pulse 80 07/08/2023 9:54 AM CDT Temperature - - Respiratory Rate 16 07/08/2023 9:54 AM CDT Oxygen Saturation - - Inhaled Oxygen Concentration - - Weight 79.8 kg (176 lb) 07/08/2023 9:54 AM CDT Height 172.7 cm (5' 7.99 ) 07/08/2023 9:54 AM CD T Body Mass Index 26.77 07/08/2023 9:54 AM CDT Plan of Treatment Health Maintenance Due Date Last Done Comments Fall Risk Assessment 1945 Hepatitis C Screening 1945 Osteoporosis Screening-Bone Density Scan 1945 DTaP/Tdap/Td Vaccine (1 - Tdap) 1957 Hepatitis B Screening 1964 Zoster Vaccine (1 of 2) 1996 Pneumococcal vaccine 65+ (1 of 1 - PCV) 09/25/2011 Well Visit 65+ 09/25/2011 Depression Screening 03/02/2021 03/02/2020, 03/04/20 19 Influenza Vaccine (#1) 2023 Insurance MEDICARE [employer] MED[employer] Care Teams Oil And Gas Exploration Technician Relationship Specialty Start Date End Date Roby Stafford MD PCP - General 07/26/[address] MD [address] [address] Referring Physician Hematology 07/08/23
--- OUTSIDE RECORDS SUMMARY | 2024-06-10 09:40 | XMS_ITS | Patient Health Summary ---
Author Organization [facility] Address [address] [place] [address] Care Team Providers Care Bath Steward/Stewardess Name Role Phone Roby Stafford MD Primary Care Provider [phone] Note from [facility],non-owned Affiliates and Associated Physician Practices is amultiple site organization consisting of ambulatory clinics and hospital sitesin [place], [place], [place] and [place]. This disclosure is being madepursuant to the Care Everywhere program and may not contain all information available regarding this patient. Last updated 18.[facility] Allergies * Albuterol(Other) -Medium Criticality Medications * Be aware that medications may not be up to date on this document. Alwaysverify current medications with the patient. * LEVOTHYROXINE SODIUM PO * methylPREDNISolone (MEDROL DOSEPAK) 4 MG tablet(Started 05/17/2017) Take by mouth as directed * benzonatate (TESSALON) 100 MG capsule(Started 05/29/2017) Take 1 capsule by mouth 3 times daily as needed for Cough Reasons: Cough Social History Tobacco Use Types Packs/Day Years Used Date Smoking Tobacco: Former Smokeless Tobacco: Never Sex and Gender Information Value Date Recorded Sex Assigned at Not on file Gender Identity Not on file Sexual Orientation Not on file Last Filed Vital Signs Vital Sign Reading Time Taken Comments Blood Pressure 120/68 05/29/2017 10:29 AM MARKETING MANAGER HEALTH COMMUNICATIONS Pulse 84 05/29/2017 10:29 AM MARKETING MANAGER HEALTH COMMUNICATIONS Temperature 36.6 C (97.9 F) 05/29/2017 10:29 AM MARKETING MANAGER HEALTH COMMUNICATIONS Respiratory Rate - - Oxygen Saturation 96% 05/29/2017 10:29 AM MARKETING MANAGER HEALTH COMMUNICATIONS Inhaled Oxygen Concentration - - Weight 81.6 kg (180 lb) 05/29/2017 10:29 AM MARKETING MANAGER HEALTH COMMUNICATIONS Height 175.3 cm (5' 9 ) 05/29/2017 10:29 AM MARKETING MANAGER HEALTH COMMUNICATIONS Body Mass Index 26.58 05/29/2017 10:29 AM MARKETING MANAGER HEALTH COMMUNICATIONS Procedures * DERMATOPATHOLOGY(Performed 07/25/2015) * DERMATOPATHOLOGY(Performed 12/17/2010) Results * PATHOLOGY TISSUE FOR DERMATOLOGY (07/25/2015 12:00 AM CDT) Only the most recent of2 resultswithin the time period is included. Result CASE: [id number] PATIENT: ZOE BRANHAM PATHOLOGIC DIAGNOSIS: Mid upper back: BENIGN VERRUCOUS KERATOSIS, INFLAMED NOT PRESENT AT SAMPLED MARGIN CLINICAL DATA: Changing lesion. Check margins. GROSS DESCRIPTION: Received is one formalin filled container labeled with the patients name and designated mid upper back. The specimen consists of a shave biopsy measuring [id number]. The margin is inked green. Jar 0. MICROSCOPIC DESCRIPTION: Sections show hyperkeratosis, papillomatosis, hypergranulosis , and acanthosis. These histological findings can be seen in a verruca vulgaris or a seborrheic keratosis. Inflammatory cells are present within the dermis. This lesion is not present at the sampled margin of the specimen. Electronically signed out by Maya Ovalle M.D. 07/27/2015 1:03:18PM [facility] Comment: Performed at: Dermatopathology Laboratory [facility] Department of Dermatology [address] [place] [address] [place] [address] Phone number: [phone] FAX: [phone] 07/25/2015 07/26/2015 Roby Stafford MD LAB - PATHOLOGY/CYTO LOGY ORDERABLES [facility] [address] [place] [address]. [facility] [place] [address], [facility] [phone] Care Teams Bath Steward/Stewardess Relationship Specialty Start Date End Date Roby Stafford MD [address] [place] [address] [facility] - General 03/14/20
--- OUTSIDE RECORDS SUMMARY | 2024-06-10 09:40 | XMS_ITS | Referral Summary ---
Author Organization [facility] [address] [facility] Address [address] [place] [address] Care Team Providers Care Coin Machine Servicer Repairer Name Role Phone Roby Stafford MD Primary Care Provider [phone] MD Unavailable [phone] Allergies Active Allergy Reactions Criticality Noted [...] 07/02/2022 Assessment & Plan (07/02/2022 10:19 AM CARBIDE POWDER PROCESSOR): Discussed healthy diet and importance of regular physical activity (20- 30min/day, 150min/wk). COVID-19 04/15/2021 Microcytic anemia 04/15/2021 Calculus of kidney 02/15/2020 Postoperative hypothyroidism 03/04/2017 Assessment & Plan (07/08/2023 5:38 PM CDT): Chronic, stable Update TFTs Continue levothyroxine Importance of taking the medication on an empty stomach was discussed Assessment & Plan (07/02/2022 10:26 AM CARBIDE POWDER PROCESSOR): Chronic problem. Currently taking levothyroxine 100mcg daily. Will update labs today. Verified phone #/address to contact re: results. Will send in 90 day with [place] [facility] [place]. Assessment & Plan (05/17/2021 2:44 PM CARBIDE POWDER PROCESSOR): Chronic problem, stable. Check labs today and adjust LT4 dose as indicated. Reviewed that with weight loss sometimes dose adjustment is needed. Assessment & Plan (03/02/2020 1:19 PM CARBIDE POWDER PROCESSOR): Thyroid function tests, including TSH and free [...] taken. Assessment & Plan (03/04/2019 2:08 PM CARBIDE POWDER PROCESSOR): Will check TSH and free T4 Will adjust dose of Levothyroxine accordingly . If there is a need to make changes, will recheck levels in 2-3 months. Instructions to patient on taking medication properly : in the morning, on an empty stomach , 1 h part from food and/or other meds. Assessment & Plan (03/03/2018 10:01 AM CARBIDE POWDER PROCESSOR): Will check TSH and free T4 Will [...] taken. Assessment & Plan (03/04/2017 9:23 AM CARBIDE POWDER PROCESSOR): Check TSH, free T4 Adjust dose of Levothyroxine accordingly . Instructions to patient on taking medication properly Resolved Problems Problem Noted Date Diagnosed Date Resolved Date Acute cystitis with hematuria 02/19/2020 07/01/2022 Hypothyroid 02/19/2020 07/01/2022 Pleural effusion on right 02/19/2020 Social History Tobacco Use Types Packs/Day Years [...] on file Legal Sex Female 10:47 AM CARBIDE POWDER PROCESSOR Gender Identity Not on file Sexual Orientation [...] 07/08/2023 9:54 AM CDT Plan of Treatment Not on file Insurance MEDICARE SOLUTIONS MEDICARE SOLUTIONS Care Teams Coin Machine Servicer Repairer Relationship Specialty Start Date End Date Roby Stafford MD PCP - General 07/26/[address] MD [address] [address] Referring Physician Hematology 07/08/23
--- OUTSIDE RECORDS SUMMARY | 2024-06-10 09:40 | XMS_ITS | Encounter Summary ---
Author Organization [facility] Address [address] [place] [address] Care Team Providers Care Antique Refinisher Name Role Phone Roby Stafford MD Primary Care Provider [phone] MD Unavailable [phone] Encounter Details Date Type Department Care Team (Late Contact Info) Description 08/06/2016 Orders Only [facility] ProviderMaria Eugenia MD [address] [place] [address] Social History Tobacco Use Types Packs/Day Years Used Date Smoking Tobacco: Never Alcohol Use Standard Drinks/Week Comments Yes 0 (1 standard drink = 0.6 oz pur e alcohol) Comments Unknown Sex and Gender Information Value Date Recorded Sex Assigned at Not on file Legal Sex Female 10:47 AM SHOE TREER Gender Identity Not on file Sexual Orientation Not on file documented as of this encounter Plan of Treatment Not on file documented as of this encounter Procedures Procedure Name Priority Date/Time Associated Diagnosis Comments CARDIOLOGY REPORT 08/06/2016 documented in this encounter Results * CARDIOLOGY REPORT (08/06/2016) Anatomical Region Laterality Modality Other Narrative 08/06/2016 Ordered by an unspecified provider. Historical Provider [facility] SEYM[facility] CASTREJON Final Result documented in this encounter Visit Diagnoses Not on filedocumented in this encounter Care Teams Antique Refinisher Relationship Specialty Start Date End Date Roby Stafford MD PCP - General 07/26/[address] MD [address] [phone] Referring Physician Hematology 07/08/23 documented as of this encounter
--- OUTSIDE RECORDS SUMMARY | 2024-06-10 09:41 | XMS_ITS | Clinical Summary ---
Author Organization [facility] Address [address] [place] [address] Care Team Providers Care Regulatory Compliance Director Name Role Phone Roby Stafford MD Primary Care Provider [phone] Source Comments [facility],non-owned Affiliates and Associated Physician Practices is amultiple site organization consisting of ambulatory clinics and hospital sitesin [place], [place], [place] and [place]. This disclosure is being madepursuant to the Care Everywhere program and may not contain all information available regarding this patient. Last updated 18.[facility] Allergies Active Allergy Reactions Criticality Noted Date Comments Albuterol Other Medium 05/17/2017 Patient states inhalers make her more tight in chest. Medications * Be aware that medications may not be up to date on this document. Always verify current medications with the patient. Medication Sig [...] Comments Blood Pressure 120/68 05/29/2017 10:29 AM TIMING MACHINE OPERATOR Pulse 84 05/29/2017 10:29 AM TIMING MACHINE OPERATOR Temperature 36.6 C (97.9 F) 05/29/2017 10:29 AM TIMING MACHINE OPERATOR Respiratory Rate - - Oxygen Saturation 96% 05/29/2017 10:29 AM TIMING MACHINE OPERATOR Inhaled Oxygen Concentration - - Weight 81.6 kg (180 lb) 05/29/2017 10:29 AM TIMING MACHINE OPERATOR Height 175.3 cm (5' 9 ) 05/29/2017 10:29 AM TIMING MACHINE OPERATOR Body Mass Index 26.58 05/29/2017 10:29 AM TIMING MACHINE OPERATOR Plan of Treatment Health Maintenance Due Date Last Done Comments BONE DENSITY TESTING 1945 HEPATITIS C SCREENING 09/19/1964 DTAP/TDAP/TD VACCINES (1 - Tdap) 1965 PNEUMOCOCCAL VACCINE 50+ (1 of 1 - PCV) 1996 ZOSTER VACCINE (1 of 2) 1996 SCREENING FOR DIABETES 05/17/2017 Respiratory Syncytial Virus (RSV) Vaccine Pt: or over 60 yrs (1 - 1-dose 75+ series) 2021 COVID-19 VACCINE ( - 2023-2 5 season) 2023 INFLUENZA VACCINE (#1) 2023 DEPRESSION SCREENING 04/28/2024 MEDICARE AWV CALENDAR YEAR 2024 HEPATITIS B VACCINE Aged Out No longe r eligible based on patient's age to complete this topic HIB VACCINE Aged Out No longer eligi ble based on patient's age to complete this topic HPV VACCINE Aged Out No longer eligi ble based on patient's age to complete this topic MENINGOCOCCAL (Group B) VACCINE Aged Out No longer eligible based on patient's age to complete this topic MENINGOCOCCAL VACCINE Aged Out No miracle junie eligible based on patient's age to complete this topic Care Teams Regulatory Compliance Director Relationship Specialty Start Date End Date Roby Stafford MD [address] [place] [address] PCP - General 03/14/20
--- OUTSIDE RECORDS SUMMARY | 2024-06-10 09:41 | XMS_ITS | Clinical Summary ---
Author Organization [facility] Address [address] [place] [address] Care Team Providers Care Intravenous Therapy Nurse Name Role Phone Roby Stafford MD Primary Care Provider [phone] Allergies Active Allergy Reactions Criticality Noted Date Comments Albuterol Other (See Comments) Medium 05/17/2017 Patient states inhalers make [...] Unknown 02/18/2020 Iron Unknown 01/10/2021 Medications levothyroxine 112 mcg tablet Take 112 mcg by mouth daily. 07/08/2023 Active multivitamin (DAILY-NATALIE) tablet Take 1 Tablet by mouth daily. Active CYANOCOBALAMIN, VITAMIN B-12, ORAL Take by mouth. Active Active Problems No known active problems Encounters Date Type Department Care Team Description 05/25/2024 External Device Data [facility] ABSTRACTION Provider, Abstract 05/19/2024 External Device Data [facility] ABSTRACTION Provider, Abstract 05/19/2024 External Device Data [facility] ABSTRACTION Provider, Abstract from Last 3 Months Family History Medical History Relation Name Comments No Known Problems Brother 1 No Known Problems Daughter No Known Problems Father Hypertension Mother No Known Problems Sister No Known Problems Son 2 Relation Name Status Comments Brother 1 Alive Brother 2 Alive Daughter Alive Father Mother Sister Alive Son 1 Son 2 Alive Social History Tobacco Use Types Packs/Day Years Used Date Smoking Tobacco: Former Cigarettes Q uit: 09/26/2022 Smokeless Tobacco: Never Tobacco Cessation:Counseling Given: Not Answered Alcohol Use Standard Drinks/Week Comments Not Currently 0 (1 standard drink = 0.6 oz pure alcohol) Not drank in 2-3 years, was social drinker Comments Unknown Sex and Gender Information Value Date Recorded Sex Assigned at Not on file Legal Sex Female 3:20 PM CDT Gender Identity Not on file Sexual Orientation Not on file Last Filed Vital Signs Vital Sign Reading Time Taken Comments Blood Pressure 114/69 01/16/2024 8:56 AM CDT Pulse 67 01/16/2024 8:56 AM CDT Temperature 36.6 C (97.8 F) 01/16/2024 8:56 AM CDT Respiratory Rate 16 01/16/2024 8:56 AM CDT Oxygen Saturation 92% 01/16/2024 8:56 AM CDT Inhaled Oxygen Concentration - - Weight 73 kg (161 lb) 01/16/2024 8:56 AM CDT Height 175.3 cm (5' 9 ) 01/01/2023 2:42 PM CDT Body Mass Index 23.78 01/01/2023 2:42 PM CDT Plan of Treatment Upcoming Encounters Date Type Department Care Team (Late st Contact Info) Description 01/20/2025 10:00 AM CDT Office Visit [facility] Oncology and Hematology - [place] [address] [facility] [address] [facility] [address] [place] [address] MD [address] [place] [address] Health Maintenance Due Date Last Done Comments DTAP/TDAP/TD VACCINES (1 - Tdap) 1965 PNEUMOCOCCAL VACCINE 65+ YEARS (1 of 1 - PCV) 09/24/18 97 ZOSTER VACCINE (1 of 2) 1996 OSTEOPOROSIS SCREENING 09/25/2011 RSV VACCINE (60+ or ) (1 - 1-dose 75+ series) 2021 INFLUENZA VACCINE (#1) 2023 Insurance HMO MCR [id number] Care Teams Intravenous Therapy Nurse Relationship Specialty Start Date End Date Roby Stafford MD [address] [place] [address] PCP - General Family Practice 01/01/23
== END 2024-06-10 09:18 | disposition home or self-care (01) ==
LOC: ANHSURGERY 09:22
PROVIDERS: PCP Physician Assistant Medical; Visit Provider Surgery
DX: Z01.818 Encounter for other preprocedural examination (principal); K40.90 Unilateral inguinal hernia, without obstruction or gangrene, not specified as recurrent
CPT/HCPCS: 36415; 86850; 86860; 86870; 86880; 86900; 86901; 86902; 86906; 86971; 86972

== ENCOUNTER 2024-06-18 00:48 | Day surgery (SDC) | payer MEDICARE, SELFPAY ==
--- NOTE | 2024-06-04 12:40 | PC.NURSE ---
Report to the Outpatient Waiting Room, entrance under the green pavilion located off [facility], at time _10 am on date _06/18/24 . Planned Procedure Time: __1200 noon .? Time changes happen often and if your time is changed the preop area will call you the afternoon before. - You and your visitor will be asked to self-screen and do not enter if you have any COVID symptoms. Please call surgeon if you need to reschedule. - A mask is optional within the hospital at this time. Patients may have clear liquids (water, carbonated beverages, clear teas, apple juice) until 3 hours prior to surgery ( 9 am)with a maximum of 20 ounces. - No food from midnight until time of surgery and no smoking, or chewing tobacco (or any form of nicotine). No chewing gum, candy or mints. Take only the following medications with a SIP of water on the morning of surgery: ___levothyroxine DO NOT STOP ANY OF YOUR OTHER PRESCRIPTION MEDICATIONS PRIOR TO SURGERY EXCEPT THE FOLLOWING Hold all vitamins and supplements for 3 days per anesthesiologist. Medications to discontinue per physician NONE Please no make-up, nail uzbek, hairspray, perfume, deodorant, or body powder the day of surgery.? No jewelry (including any body piercings) or valuables the day of surgery, leave them at home.? Please take a shower or bath the night before, or the morning of, surgery with an antibacterial soap.? Wear comfortable, loose fitting clothing.? Children are encouraged to wear pajamas. - Jewelry must be removed prior to entering the operating room.? Rings and piercings that are not removed may be cut off. - The hospital will not accept responsibility for valuables.? - Please leave all valuables, including medications, at home the day of surgery. If you are going home after surgery, a licensed pick up truck driver must drive you home.? - NO public transportation without another adult if you receive anesthesia. - We recommend that an adult stay with you for 24 hours following discharge. - We also recommend that you do not drive, make important decision, drink alcoholic beverages, or take any drugs that were not prescribed by your health care provider for at least 24 hours after your discharge time. Follow any additional instructions given to you from your surgeon. Telephone instructions given to __PATIENT and asked if any additional questions and then verbalized understanding. Patient advised to call surgeon office or pre surgery nurse liaison [phone] if any additional questions.
[2024-06-04 12:55] VITALS: BMI 25.0
[2024-06-18] VITALS (14 sets, daily range): BP systolic 105–136; BP diastolic 63–80; PULSE 65–78; RESP 14–24; TEMP 36.1–36.6; O2SAT 92–100; BMI 25.9
--- OUTSIDE RECORDS SUMMARY | 2024-06-18 00:52 | XMS_ITS | Encounter Summary ---
Author Organization [facility] Address [address] [place] [address] Care Team Providers Care Customer Service Officer Name Role Phone Roby Stafford MD Primary Care Provider [phone] MD Unavailable [phone] Encounter Details Date Type Department Care Team (Late Contact Info) Description 08/06/2016 Orders Only [facility] ProviderMaria Eugenia MD [address] [place] [address] Social History Tobacco Use Types Packs/Day Years Used Date Smoking Tobacco: Never Alcohol Use Standard Drinks/Week Comments Yes 0 (1 standard drink = 0.6 oz pur e alcohol) Comments Unknown Sex and Gender Information Value Date Recorded Sex Assigned at Not on file Legal Sex Female 10:47 AM HEALTHCARE LIAISON Gender Identity Not on file Sexual Orientation [...] on filedocumented in this encounter Care Teams Customer Service Officer Relationship Specialty Start Date End Date Roby Stafford MD PCP - General 07/26/[address] MD [address] [phone] Referring Physician Hematology 07/08/23 documented as of this encounter
--- OUTSIDE RECORDS SUMMARY | 2024-06-18 00:52 | XMS_ITS | Referral Summary ---
Author Organization [facility] [address] [facility] Address [address] [place] [address] Care Team Providers Care Hydrogen Power Plant Engineer Name Role Phone Roby Stafford MD Primary Care Provider [phone] MD Unavailable [phone] Allergies Active Allergy Reactions Criticality Noted [...] 07/02/2022 Assessment & Plan (07/02/2022 10:19 AM HEALTH EDUCATION ASSISTANT): Discussed healthy diet and importance of regular physical activity (20- 30min/day, 150min/wk). COVID-19 04/15/2021 Microcytic anemia 04/15/2021 Calculus of kidney 02/15/2020 Postoperative hypothyroidism 03/04/2017 Assessment & Plan (07/08/2023 5:38 PM CDT): Chronic, stable Update TFTs Continue levothyroxine Importance of taking the medication on an empty stomach was discussed Assessment & Plan (07/02/2022 10:26 AM HEALTH EDUCATION ASSISTANT): Chronic problem. Currently taking levothyroxine 100mcg daily. Will update labs today. Verified phone #/address to contact re: results. Will send in 90 day with refills to [facility] in [place]. Assessment & Plan (05/17/2021 2:44 PM HEALTH EDUCATION ASSISTANT): Chronic problem, stable. Check labs today and adjust LT4 dose as indicated. Reviewed that with weight loss sometimes dose adjustment is needed. Assessment & Plan (03/02/2020 1:19 PM HEALTH EDUCATION ASSISTANT): Thyroid function tests, including TSH and free [...] taken. Assessment & Plan (03/04/2019 2:08 PM HEALTH EDUCATION ASSISTANT): Will check TSH and free T4 Will adjust dose of Levothyroxine accordingly . If there is a need to make changes, will recheck levels in 2-3 months. Instructions to patient on taking medication properly : in the morning, on an empty stomach , 1 h part from food and/or other meds. Assessment & Plan (03/03/2018 10:01 AM HEALTH EDUCATION ASSISTANT): Will check TSH and free T4 Will [...] taken. Assessment & Plan (03/04/2017 9:23 AM HEALTH EDUCATION ASSISTANT): Check TSH, free T4 Adjust dose of [...] on file Legal Sex Female 10:47 AM HEALTH EDUCATION ASSISTANT Gender Identity Not on file Sexual Orientation [...] Insurance MEDICARE SOLUTIONS MEDICARE SOLUTIONS Care Teams Hydrogen Power Plant Engineer Relationship Specialty Start Date End Date Roby Stafford MD PCP - General 07/26/[address] MD [address] [address] Referring Physician Hematology 07/08/23
--- OUTSIDE RECORDS SUMMARY | 2024-06-18 00:52 | XMS_ITS | Clinical Summary ---
Author Organization [facility] [address] [facility] Address [address] [place] [address] Care Team Providers Care Geographic Information Scientist Name Role Phone Roby Stafford MD Primary Care Provider [phone] MD Unavailable Allergies Active Allergy Reactions Criticality Noted Date [...] 07/02/2022 Assessment & Plan (07/02/2022 10:19 AM INCINERATOR OPERATOR): Discussed healthy diet and importance of regular physical activity (20- 30min/day, 150min/wk). COVID-19 04/15/2021 Microcytic anemia 04/15/2021 Calculus of kidney 02/15/2020 Postoperative hypothyroidism 03/04/2017 Assessment & Plan (07/08/2023 5:38 PM CDT): Chronic, stable Update TFTs Continue levothyroxine Importance of taking the medication on an empty stomach was discussed Assessment & Plan (07/02/2022 10:26 AM INCINERATOR OPERATOR): Chronic problem. Currently taking levothyroxine 100mcg daily. Will update labs today. Verified phone #/address to contact re: results. Will send in 90 day with refills to [facility] in [place]. Assessment & Plan (05/17/2021 2:44 PM INCINERATOR OPERATOR): Chronic problem, stable. Check labs today and adjust LT4 dose as indicated. Reviewed that with weight loss sometimes dose adjustment is needed. Assessment & Plan (03/02/2020 1:19 PM INCINERATOR OPERATOR): Thyroid function tests, including TSH and free [...] taken. Assessment & Plan (03/04/2019 2:08 PM INCINERATOR OPERATOR): Will check TSH and free T4 Will adjust dose of Levothyroxine accordingly . If there is a need to make changes, will recheck levels in 2-3 months. Instructions to patient on taking medication properly : in the morning, on an empty stomach , 1 h part from food and/or other meds. Assessment & Plan (03/03/2018 10:01 AM INCINERATOR OPERATOR): Will check TSH and free T4 Will [...] taken. Assessment & Plan (03/04/2017 9:23 AM INCINERATOR OPERATOR): Check TSH, free T4 Adjust dose of [...] on file Legal Sex Female 10:47 AM INCINERATOR OPERATOR Gender Identity Not on file Sexual Orientation [...] - Tdap) 1957 Hepatitis B Screening 1964 Pneumococcal vaccine 65+ (1 of 1 - PCV) 1996 Zoster Vaccine (1 of 2) 1996 Well Visit 65+ 09/25/2011 Depression Screening 03/02/2021 03/02/2020, 03/04/20 19 Influenza Vaccine (#1) 2023 Insurance [facility]ICARE [facility] Address: [address] [address] MEDICARE [facility] Address: [address] [address] [place] [address] Care Teams Geographic Information Scientist Relationship Specialty Start Date End Date Roby Stafford MD PCP - General 07/26/[address] MD [address] [address] Referring Physician Hematology 07/08/23
--- OUTSIDE RECORDS SUMMARY | 2024-06-18 00:52 | XMS_ITS | Clinical Summary ---
Author Organization [facility] Address [address] [place] [address] Care Team Providers Care Manager Relocation Name Role Phone Roby Stafford MD Primary Care Provider Source Comments [facility],non-owned Affiliates and Associated Physician Practices is amultiple site organization consisting of ambulatory clinics and hospital sitesin [place], [place], [place] and [place]. This disclosure is being madepursuant to the Care Everywhere program and may not contain all information available regarding this patient. Last updated 18.[facility] Allergies Active Allergy Reactions Criticality Noted Date [...] Comments Blood Pressure 120/68 05/29/2017 10:29 AM PIGS FEET CLEANER Pulse 84 05/29/2017 10:29 AM PIGS FEET CLEANER Temperature 36.6 C (97.9 F) 05/29/2017 10:29 AM PIGS FEET CLEANER Respiratory Rate - - Oxygen Saturation 96% 05/29/2017 10:29 AM PIGS FEET CLEANER Inhaled Oxygen Concentration - - Weight 81.6 kg (180 lb) 05/29/2017 10:29 AM PIGS FEET CLEANER Height 175.3 cm (5' 9 ) 05/29/2017 10:29 AM PIGS FEET CLEANER Body Mass Index 26.58 05/29/2017 10:29 AM PIGS FEET CLEANER Plan of Treatment Health Maintenance Due Date [...] age to complete this topic Care Teams Manager Relocation Relationship Specialty Start Date End Date Roby Stafford MD [address] [place] [address] PCP - General 03/14/20
--- OUTSIDE RECORDS SUMMARY | 2024-06-18 00:52 | XMS_ITS | Referral Summary ---
Author Organization [facility] Address [address] [place] [address] Care Team Providers Care Elementary Principal Name Role Phone Roby Stafford MD Primary Care Provider [phone] Source Comments [facility],non-owned Affiliates and Associated Physician Practices is amultiple site organization consisting of ambulatory clinics and hospital sitesin [place], [place], [place] and [place]. This disclosure is being madepursuant to the Care Everywhere program and may not contain all information available regarding this patient. Last updated 18.[facility] Allergies Active Allergy Reactions Criticality Noted Date [...] Comments Blood Pressure 120/68 05/29/2017 10:29 AM CEMENT FINISHER APPRENTICE Pulse 84 05/29/2017 10:29 AM CEMENT FINISHER APPRENTICE Temperature 36.6 C (97.9 F) 05/29/2017 10:29 AM CEMENT FINISHER APPRENTICE Respiratory Rate - - Oxygen Saturation 96% 05/29/2017 10:29 AM CEMENT FINISHER APPRENTICE Inhaled Oxygen Concentration - - Weight 81.6 kg (180 lb) 05/29/2017 10:29 AM CEMENT FINISHER APPRENTICE Height 175.3 cm (5' 9 ) 05/29/2017 10:29 AM CEMENT FINISHER APPRENTICE Body Mass Index 26.58 05/29/2017 10:29 AM CEMENT FINISHER APPRENTICE Plan of Treatment Not on file Care Teams Elementary Principal Relationship Specialty Start Date End Date Roby Stafford MD [address] [place] [id number] PCP - General 03/14/20
--- OUTSIDE RECORDS SUMMARY | 2024-06-18 00:52 | XMS_ITS | Clinical Summary ---
Author Organization [facility] Address [address] [place] [address] Phone Care Team Providers Care Network Lead Name Role Phone Roby Stafford MD Primary Care Provider [phone] Allergies Active Allergy Reactions Criticality Noted Date [...] Department Care Team Description 04/06/2024 12:59 PM AFRICAN HISTORY PROFESSOR - 04/06/2024 11:59 PM AFRICAN HISTORY PROFESSOR [facility] [address] [place] [address] Clarissa Betancur Discharge Disposition: Discharged to home or Selfcare 04/06/2024 Travel 04/02/2024 [facility]cribe [facility] Central Scheduling [address] [place] [address] Clarissa Betancur Intra-abdominal and pelvic swelling, mass and lump, unspecified site; Abnormal findings on diagnostic imaging of other abdominal regions, including retroperitoneum 03/27/2024 9:08 AM AFRICAN HISTORY PROFESSOR - 03/27/2024 11:59 PM AFRICAN HISTORY PROFESSOR [facility] Ultrasound [address] [place] [address] Clarissa Betancur Discharge Disposition: Discharged to home or Selfcare 03/27/2024 Travel from Last 3 Months Family History Medical History Relation Name Comments Chronic Obstructive Pulmonary Disease Father Hypertension Mother Relation Name Status Comments Father Mother Social History Tobacco Use Types Packs/Day Years Used Date Smoking Tobacco: Former Cigarettes 1 - 1984 Smokeless Tobacco: Never Tobacco [...] Comments Blood Pressure 119/64 04/17/2021 8:30 AM AFRICAN HISTORY PROFESSOR Pulse 80 04/17/2021 8:30 AM AFRICAN HISTORY PROFESSOR Temperature 36.4 C (97.5 F) 04/17/2021 8:30 AM AFRICAN HISTORY PROFESSOR Respiratory Rate 20 04/17/2021 8:30 AM AFRICAN HISTORY PROFESSOR Oxygen Saturation 88% 04/17/2021 8:30 AM AFRICAN HISTORY PROFESSOR Inhaled Oxygen Concentration - - Weight 78.5 kg (173 lb) 04/15/2021 8:13 AM AFRICAN HISTORY PROFESSOR Height 175.3 cm (5' 9 ) 04/15/2021 8:13 AM AFRICAN HISTORY PROFESSOR Body Mass Index 25.55 04/15/2021 8:13 AM AFRICAN HISTORY PROFESSOR Plan of Treatment Health Maintenance Due Date [...] this topic Medical Devices Implanted Type Area Weight Loss Sales Consultant Device Identifier Shelf Expiration Date Model / Serial / Lot Stent Ureteral 6fr 2.1fr 26cm 2 Pigtail Curve 2 Durometer Taper Tip Loprfl Graduated Polaris Ultra - [id number] Implanted:Qty: 1 on 02/19/2020 by Monica Marlow MD at [facility] IMPLANT Right: Ureter [employer] 11/10/2022 [id number] Neprostomy Catheter Percuflex Locking Loop Implanted:Qty: 1 on 02/15/2020 by Monica Marlow MD at [facility] Right: Kidney [employer] 09/21/2021 [id number] / [id number] Procedures Procedure Name Priority Date/Time Associated Diagnosis Comments CT ABDOMEN PELVIS W/O CONTRAST Routine 04/06/2024 1:20 PM AFRICAN HISTORY PROFESSOR Intra-abdominal and pelvic swelling, mass and lump, unspecified site Abnormal findings on diagnostic imaging of other abdominal regions, including retroperitoneum US ABDOMEN LIMITED, LEVEL 1 - SINGLE ORGAN Routine 03/27/2024 9:54 AM AFRICAN HISTORY PROFESSOR Abdominal mass, unspecified abdominal location from Last 3 Months Results * CT ABDOMEN PELVIS W/O CONTRAST (04/06/2024 1:20 PM AFRICAN HISTORY PROFESSOR) Anatomical Region Laterality Modality Abdomen N/A Computed Tomogra phy 04/12/2024 1:04 PM AFRICAN HISTORY PROFESSOR Impressions 04/12/2024 1:07 PM AFRICAN HISTORY PROFESSOR IMPRESSION: Area of palpable abnormality corresponds in location with a small fat containing right groin hernia. Large hiatal hernia. Colonic diverticulosis. Narrative 04/12/2024 1:07 PM AFRICAN HISTORY PROFESSOR EXAM DESCRIPTION: CT ABDOMEN PELVIS W/O CONTRAST [...] by Cristhian Albarran M.D. JR: Report ID: [id number] Reading Location: [place] [address] Procedure Note Cristhian Albarran MD - 04/12/2024 [...] by Cristhian Albarran M.D. JR: Report ID: [id number] Reading Location: [id number] IMPRESSION: Area of palpable abnormality corresponds in location with a small fat containing right groin hernia. Large hiatal hernia. Colonic diverticulosis. us Clarissakameron Hubbard [facility] IM CT ORDERABLES Final Result * US ABDOMEN LIMITED, LEVEL 1 - SINGLE ORGAN OR SOFT TISSUE (03/27/2024 9:54 AM AFRICAN HISTORY PROFESSOR) Anatomical Region Laterality Modality Abdomen N/A Ultrasound 03/30/2024 10:0 6 AM AFRICAN HISTORY PROFESSOR Impressions 03/30/2024 10:09 AM AFRICAN HISTORY PROFESSOR IMPRESSION: 1. Limited sonographic examination of the [...] for further evaluation. Narrative 03/30/2024 10:09 AM AFRICAN HISTORY PROFESSOR EXAM DESCRIPTION: US ABDOMEN LIMITED, LEVEL 1 - SINGLE ORGAN OR SOFT TISSUE REASON FOR STUDY: intra-abdominal and pelvic swelling,mass and lump,unspecified site TECHNIQUE: A Dynamic assessment was performed of the soft tissues right lower quadrant by the aligner, with selected grayscale and color Doppler images [...] Mert Sanchez M.D. AG: FARRAH Report ID: [id number] Reading Location: [id number] Procedure Note Mert Sanchez MD - 03/30/2024 EXAM DESCRIPTION: US ABDOMEN LIMITED, LEVEL 1 - SINGLE ORGAN OR SOFT TISSUE REASON FOR STUDY: intra-abdominal and pelvic swelling,mass and lump,unspecified site TECHNIQUE: A Dynamic assessment was performed of the soft tissues right lower quadrant by the aligner, with selected grayscale and color Doppler images [...] Mert Sanchez M.D. AG: FARRAH Report ID: [id number] Reading Location: [id number] IMPRESSION: 1. Limited sonographic examination of the [...] performed for further evaluation. us Clarissa Betancur [facility] [place] Final Result from Last 3 Months Insurance [facility] Advance Directives * Full Code (Latest Code [...] measures to stabilize the patient. Care Teams Network Lead Relationship Specialty Start Date End Date Roby Stafford MD [address] [address] PCP - General Family Medicine 01/19/20
--- OUTSIDE RECORDS SUMMARY | 2024-06-18 00:52 | XMS_ITS | Clinical Summary ---
[facility] Address [address] [place] [address] Care Team Providers Care Ekg Monitor Tech Name Role Phone Roby Stafford MD Primary Care Provider [phone] Allergies Active Allergy Reactions Criticality Noted Date [...] Encounters Date Type Department Care Team Description 06/15/2024 External Device Data ST[facility] ABSTRACTION Provider, Abstract 05/25/2024 External Device Data [facility] ABSTRACTION Provider, [...] Description 01/20/2025 10:00 AM CDT Office Visit [facility] Oncology and Hematology - [place] [address] [place] [address] MD [address] [facility] [address] [place] [address] Health Maintenance Due Date Last Done Comments DTAP/TDAP/TD VACCINES (1 - Tdap) 1965 PNEUMOCOCCAL VACCINE 65+ YEARS (1 of 1 - PCV) 09/24/18 97 ZOSTER VACCINE (1 of 2) 1996 OSTEOPOROSIS SCREENING 09/25/2011 RSV VACCINE (60+ or ) (1 - 1-dose 75+ series) 2021 INFLUENZA VACCINE (#1) 2023 Insurance [facility] [id number] Care Teams Ekg Monitor Tech Relationship Specialty Start Date End Date Roby Stafford MD [address] [place] [address] PCP - General Family Practice 01/01/23
--- OUTSIDE RECORDS SUMMARY | 2024-06-18 00:52 | XMS_ITS | Patient Health Summary ---
Author Organization [facility] Address [address] [place] [address] Care Team Providers Care Senior Business Consultant Name Role Phone Roby Stafford MD Primary Care Provider [phone] [facility],non-owned Affiliates and Associated Physician Practices is amultiple site organization consisting of ambulatory clinics and hospital sitesin [place], [place], [place] and [place]. This disclosure is being madepursuant to the Care Everywhere program and may not contain all information available regarding this patient. Last updated 18.[facility] Allergies * Albuterol(Other) -Medium Criticality Medications [...] Comments Blood Pressure 120/68 05/29/2017 10:29 AM INSTRUMENT CHECKER Pulse 84 05/29/2017 10:29 AM INSTRUMENT CHECKER Temperature 36.6 C (97.9 F) 05/29/2017 10:29 AM INSTRUMENT CHECKER Respiratory Rate - - Oxygen Saturation 96% 05/29/2017 10:29 AM INSTRUMENT CHECKER Inhaled Oxygen Concentration - - Weight 81.6 kg (180 lb) 05/29/2017 10:29 AM INSTRUMENT CHECKER Height 175.3 cm (5' 9 ) 05/29/2017 10:29 AM INSTRUMENT CHECKER Body Mass Index 26.58 05/29/2017 10:29 AM INSTRUMENT CHECKER Procedures * DERMATOPATHOLOGY(Performed 07/25/2015) * DERMATOPATHOLOGY(Performed 12/17/2010) Results * PATHOLOGY TISSUE FOR DERMATOLOGY (07/25/2015 12:00 AM CDT) Only the most recent of2 resultswithin the time period is included. Result CASE: [id number] PATIENT: ZOE BRANHAM PATHOLOGIC DIAGNOSIS: Mid upper back: BENIGN VERRUCOUS KERATOSIS, INFLAMED NOT PRESENT AT SAMPLED MARGIN CLINICAL DATA: Changing lesion. Check margins. GROSS DESCRIPTION: Received is one formalin filled container labeled with the patients name and designated mid upper back. The specimen consists of a shave biopsy measuring [id number]. The margin is inked green. Jar 0. MICROSCOPIC DESCRIPTION: Sections show hyperkeratosis, papillomatosis, hypergranulosis , and acanthosis. These histological findings can be seen in a verruca vulgaris or a seborrheic keratosis. Inflammatory cells are present within the dermis. This lesion is not present at the sampled margin of the specimen. Electronically signed out by Maya Ovalle M.D. 07/27/2015 1:03:18PM [facility] Comment: Performed at: Dermatopathology Laboratory [facility] Department of Dermatology [address] [place] [address] [place] [address] Phone number: [phone] FAX: [phone] 07/25/2015 07/26/2015 Roby Stafford MD LAB - PATHOLOGY/CYTO LOGY ORDERABLES [facility] [address] [place] [address]. [facility] [place] [address], [facility] [phone] Care Teams Senior Business Consultant Relationship Specialty Start Date End Date Roby Stafford MD [address] [place] [address] [facility] - General 03/14/20
[2024-06-18] MEDS: LACTATED RINGERS 1,000 ML 30 ML IV CONT ×2 (10:40→12:58)
--- NOTE | 2024-06-18 10:43 | WPDANESEPPF ---
Anes - Initial Pre Proc Eval Procedure: Operation Date: 06/18/24 12:00 Proposed Procedures p Laparoscopic Right Inguinal Hernia Repair with Mesh, Davinci Assisted - Michel Colmenares DO Date/Time: 06/18/24 10:43 Surgeon: Michel Colmenares DO Pre Op Diagnosis: right inguinal hernia Patient Data Age: 78 Gender: F Height: 1.75 m Weight: 76.7 kg Allergies Allergy/AdvReac Type Severity Reaction Status Date / Time azithromycin Allergy Unknown Unknown Verified 06/04/24 12:42 albuterol AdvReac Intermediate Nausea and Verified 06/04/24 12:42 Vomiting Iodinated Contrast Media AdvReac Mild Dizziness Verified 06/04/24 12:42 iodine AdvReac Mild Dizziness Verified 06/04/24 12:42 ioversol AdvReac Mild Dizziness Verified 06/04/24 12:42 iron AdvReac Mild Dizziness Verified 06/04/24 12:42 Home Medications ?Medication ?Instructions ?Recorded ?Confirmed ?Type levothyroxine 112 mcg tablet 112 mcg PO DAILY 12/23/23 06/04/24 History Patient hx anesthesia problems: none Family hx anesthesia problems: none Results Review: All pre-operative results and documents have been reviewed as part of the pre-operative evaluation. [facility] Past Medical History Medical History Acute thoracic back pain Fall (on) (from) other stairs and steps, initial encounter Injury of elbow, right Dysphagia Left elbow pain Hoarseness Kidney stone Anemia Pneumonia due to COVID-19 virus BMI 25.0-25.9,adult BMI 27.0-27.9,adult Arthritis of carpometacarpal (CMC) joint of left thumb BMI 26.0-26.9,adult History of kidney stones Gastroesophageal reflux disease Hypothyroidism, unspecified Surgical History Surgical History History of hysterectomy History of tubal ligation History of carpal tunnel release Family History Family History Mother Hypertension Family history of arthritis Father Asthma Sibling No problems noted. Social History Social History (Updated 04/29/24 @ 14:01 by Marcin Jensen MA) Smoking packs per day: 0.5 Smoking cigarettes per day: 10.0 Years smoked: 2 Smoking pack-years: 1.00 Smoking status: Former smoker Tobacco type: cigarettes Second hand tobacco smoke exposure: No Smoking end date: 04/28/79 Alcohol intake: never Substance use: never Substance use type: does not use Do You Feel Safe in your Home?: Yes Lack of Transportation: No Lack of Food: Never True Current Housing: I Have Housing Concerned About Future Housing: Decline to Answer Difficulty Paying Gas/Electric Bills: No Difficulty Paying for Meds: No Currently Unemployed: No Education: Trade/Vocational Certificate Difficulty w/ Childcare or Family Care: No Living arrangements: alone 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 Informed Consent: The patient's anesthetic plan and its attendant risks and benefits were discussed with the patient/family/POA. Questions were solicited and answers provided to the satisfaction of the patient/family/POA.
[2024-06-18] MEDS: KETOROLAC 15 MG/ML VIAL (*BKC) IV PUSH (10:45)
[2024-06-18] MEDS: ACETAMINOPHEN 500 MG TABLET 1000 MG PO (10:45)
--- NOTE | 2024-06-18 10:53 | WPDHPUPDATE1 ---
History and Physical Update Update Date/Time: 06/18/24 10:53 History and Physical has been reviewed, including an updated exam of the patient. There are NO changes in the patient's condition. Risks, benefits, and alternatives have been discussed and questions answered. Patient agrees to proceed with procedure.
--- NOTE | 2024-06-18 10:53 | PM.IMHP ---
H&P: HPI History of Present Illness Date/Time: 06/18/24 10:53 Chief Complaint: right inguinal hernia Narrative: 78 yo woman presents for right inguinal hernia repair. She reports no changes since last seen in office. Review of Systems Review of Systems: All systems reviewed & are unremarkable except as noted in HPI and below Constitutional: Constitutional: Denies chills, Denies fever(s), Denies headache(s) and Denies weight loss Eyes: Eyes: Denies change in vision ENT: Denies dizziness, Denies headache(s), Denies neck mass and Denies throat swelling Cardiovascular: Cardiovascular: Denies chest pain, Denies lightheadedness and Denies dyspnea Respiratory: Respiratory: Denies cough, Denies dyspnea and Denies wheezing Gastrointestinal: Gastrointestinal: Denies abdominal pain, Denies change in bowel habits, Denies nausea and Denies vomiting Genitourinary: Genitourinary: Denies hematuria and Denies dysuria Musculoskeletal: Musculoskeletal: Reports as per HPI Integumentary/Breasts: Skin/Breast: Reports as per HPI Neurologic: Denies dizziness and Denies headache(s) Allergic/Immunologic: Allergic/Immunologic: Denies throat swelling and Denies wheezing [facility] Past Medical History Medical History Acute thoracic back pain Fall (on) (from) other stairs and steps, initial encounter Injury of elbow, right Dysphagia Left elbow pain Hoarseness Kidney stone Anemia Pneumonia due to COVID-19 virus BMI 25.0-25.9,adult BMI 27.0-27.9,adult Arthritis of carpometacarpal (CMC) joint of left thumb BMI 26.0-26.9,adult History of kidney stones Gastroesophageal reflux disease Hypothyroidism, unspecified Surgical History Surgical History History of hysterectomy History of tubal ligation History of carpal tunnel release Family History Family History Mother Hypertension Family history of arthritis Father Asthma Sibling No problems noted. Social History Social History (Updated 04/29/24 @ 14:01 by Marcin Jensen MA) Smoking packs per day: 0.5 Smoking cigarettes per day: 10.0 Years smoked: 2 Smoking pack-years: 1.00 Smoking status: Former smoker Tobacco type: cigarettes Second hand tobacco smoke exposure: No Smoking end date: 04/28/79 Alcohol intake: never Substance use: never Substance use type: does not use Do You Feel Safe in your Home?: Yes Lack of Transportation: No Lack of Food: Never True Current Housing: I Have Housing Concerned About Future Housing: Decline to Answer Difficulty Paying Gas/Electric Bills: No Difficulty Paying for Meds: No Currently Unemployed: No Education: Trade/Vocational Certificate Difficulty w/ Childcare or Family Care: No Living arrangements: alone 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 Gender identity (if verbalized by the patient): Female Spiritual care concerns: No Meds Home Medications and Allergies Home Medications ?Medication ?Instructions ?Recorded ?Confirmed ?Type levothyroxine 112 mcg tablet 112 mcg PO DAILY 12/23/23 06/04/24 History Allergies Allergy/AdvReac Type Severity Reaction Status Date / Time azithromycin Allergy Unknown Unknown Verified 06/04/24 12:42 albuterol AdvReac Intermediate Nausea and Verified 06/04/24 12:42 Vomiting Iodinated Contrast Media AdvReac Mild Dizziness Verified 06/04/24 12:42 iodine AdvReac Mild Dizziness Verified 06/04/24 12:42 ioversol AdvReac Mild Dizziness Verified 06/04/24 12:42 iron AdvReac Mild Dizziness Verified 06/04/24 12:42 Exam Const: General: no acute distress and alert Orientation/consciousness: patient oriented x3 HENMT: Head: normocephalic and atraumatic Ears: hearing grossly normal bilaterally Face/Nose/Sinus: Normal nares present Mouth: Yes Normal oral and palatal mucosa present Eyes: Periorbital: periorbital findings normal Sclera: sclerae normal EOM: EOMs intact bilaterally Neck: Neck: normal visual inspection, no lymphadenopathy and trachea midline Chest: Chest palpation & inspection: normal inspection of the chest Resp: Effort & Inspection: normal respiratory effort Auscultation: clear to auscultation bilaterally Cardio: Jugular venous distension: no JVD Rate: regular rate Rhythm: regular rhythm Heart sounds: S1 normal heart sound present and S2 normal heart sound present Peripheral pulses: Peripheral pulses 2+ throughout GI: Inspection: normal to inspection GI Palp: Yes Soft to palpation, No Tenderness to palpation present (GI), No Guarding due to palpation present (GI) and No Rebound tenderness present Percussion: Yes normal to percussion Auscultation: normal bowel sounds Other: Small reducible right inguinal hernia : General: Yes no CVA tenderness Back/Spine/Pelvis: Back: no CVA tenderness Neuro: General: patient oriented x3, no focal motor deficits and CN's II-XI intact bilaterally Cognition (Neuro): normal cognition Speech: normal speech Motor exam (neuro): 5/5 motor strength present throughout Extrem: General: capillary refill normal and no clubbing, cyanosis or edema Assessment and Plan Assessment and plan (1) Right inguinal hernia: Code(s): K40.90 - Unilateral inguinal hernia, without obstruction or gangrene, not specified as recurrent Status: Acute Assessment and Plan: I have recommended laparoscopic right inguinal hernia repair with mesh, da Ravi assisted. I have discussed the procedure, risks, benefits, and alternatives with the patient. All questions answered. No changes since last seen in office.
[2024-06-18] MEDS: ceFAZolin 2 GM/D5W 50 ML 2 GM/50 ML BAG IVPB (11:42)
[2024-06-18] MEDS: BUPIVACAINE/EPINEPHRINE 0.5% 50 ML VIAL 30 ML INFILTRATE (12:22)
--- NOTE | 2024-06-18 12:53 | P.OP_ITS ---
Procedure Note - Detailed Date of Procedure 06/18/24 Pre-op Diagnosis right inguinal hernia Post-op Diagnosis Same (Indirect RIH) Procedure Performed Laparoscopic right inguinal hernia repair with mesh, da Ravi assisted Surgeon Michel Colmenares, DO Anesthesia General and Local (0.5% bupivacaine with epinephrine) Indications This is a 78-year-old woman who presented with a right groin bulge that she noticed about 3 months ago. She was having discomfort with activity. She had a CT at an outpatient facility which showed evidence of a reducible right inguinal hernia. She was found to have a reducible right inguinal hernia on exam. Discussions were made with the patient about treatment options and decision was made to proceed with robotic assisted laparoscopic right inguinal hernia repair with mesh. Findings Robotic assisted laparoscopic right inguinal hernia repair with mesh was performed. The patient was found to have a reducible indirect right inguinal hernia containing some omentum. There were some omental adhesions down into this area as well. The omentum was reduced and the omental adhesions were taken down. A robotic transabdominal preperitoneal approach was utilized for repair. Once a wide preperitoneal pocket was created and the hernia sac was reduced, I then placed a large right 3DMax mid mesh over the entire right myopectineal orifice. No specimens were obtained for pathology. Description of Procedure Procedure as well as risks, benefits, and alternatives were discussed with the patient. Written consent was obtained and placed in chart prior to procedure. Patient was brought back to surgical suite. She was placed supine on operating table. Time-out was done to confirm patient and procedure. She was then intubated by Anesthesia Department. Her abdomen was prepped and draped in sterile fashion using chlorhexidine prep. 0.5% bupivacaine with epinephrine was infiltrated at each location for incision. An 8 mm incision was made in the left lateral abdomen, and a 5 mm Optiview trocar was advanced through the abdominal layers under direct visualization. Once inside the abdominal cavity, carbon dioxide insufflation was used to create a pneumoperitoneum. A camera was inserted and the abdominal cavity was inspected. The patient was placed in slight Trendelenburg position. An 8 millimeter incision was made on the right lateral abdomen and an 8 millimeter trocar was inserted under direct visualization. Another 8 millimeter incision was made just superior to the umbilicus and an 8 millimeter trocar was inserted under direct visualization. The 5 mm port was then removed and this was replaced with another 8 mm robotic port. The robotic arms were brought up to the patient's bedside and secured to the ports. The camera and instruments were inserted. I then moved over to the robotic console and took control of the camera and instruments. After careful inspection of the abdominal cavity, I began scoring the peritoneum along the right lower quadrant using scissors with electrocautery. The preperitoneal plane was entered and this was carefully dissected caudally along the inferior epigastric vessels. Careful dissection with scissors with electrocautery and blunt dissection was used to continue this dissection. I dissected far enough laterally to allow for mesh placement, and also dissected medially to identify the pubic arch and Rey's ligament. The hernia sac was identified and carefully dissected posteriorly. The round ligament was also identified and the peritoneum was carefully dissected far enough posteriorly to allow for mesh placement. The round ligament was then also transected near the deep inguinal ring using electrocautery with scissors to allow for flat mesh placement. Once an adequate pocket was created, I then placed the mesh within the preperitoneal pocket and carefully unfolded it. The mesh was centered on the hernia defect with adequate overlap circumferentially. The inferior edge of the mesh was ins pected to ensure that it was far enough away from the peritoneal edge. The mesh appeared in proper position overlying the entire myopectineal orifice. The mesh was secured using 3-0 Vicryl simple interrupted sutures in Rey's ligament, the superior medial edge, and superior lateral edge of the mesh. The peritoneum was then closed over the mesh using a 3-0 V-lock running absorbable suture. The robotic instruments were removed. The robotic arms were disengaged from the ports and moved away from the bedside. The patient was flattened out in bed, the ports were removed under direct visualization, and the pneumoperitoneum was released. The skin of the incisions was approximated using 4-0 Monocryl subcuticular suture, and Exofin glue was applied on top. The patient was awakened from anesthesia, extubated, and transferred to recovery. Implants Large right 3DMax mid mesh Estimated Blood Loss 5 Complications No immediate complications Condition Stable Disposition Same day [facility] Billing Surgery - Charge Forward: Surgery Billing
[2024-06-18] MEDS: fentaNYL CITRATE INJ (*CRX) 100 MCG/2 ML VIAL 25 MCG IV PUSH ×5 (13:58→14:16)
[2024-06-18] MEDS: ONDANSETRON INJ 4 MG/2 ML VIAL IV PUSH (14:24)
[2024-06-18] MEDS: oxyCODONE HCL (*CRX) 5 MG TAB IR PO (15:32)
--- NOTE | 2024-06-18 16:13 | SUR.PHASEII ---
PATIENT FEELS BETTER AFTER EMESIS. AWAITING RIDE. VOIDED X 1.
[2024-06-18] MEDS: diphenhydrAMINE HCl INJ 50 MG/ML VIAL 12.5 MG IV PUSH (16:27)
== END 2024-06-18 16:38 | disposition home or self-care (01) ==
PROVIDERS: PCP Physician Assistant Medical; Visit Provider Surgery
PROC: 8E0Y4CZ Robotic Assisted Procedure of Lower Extremity, Percutaneous Endoscopic Approach (ICD-10-PCS; CPT 49650; principal; 2024-06-18 12:00)
DX: K40.90 Unilateral inguinal hernia, without obstruction or gangrene, not specified as recurrent (principal); Z87.891 Personal history of nicotine dependence
CPT/HCPCS: 49650; S2900; 36415; 86850; 86860; 86870; 86880; 86900; 86901; 86902; 86906; 86971; 86972; A9270; C1781; J0690; J1100; J1200; J1885; J2003; J2405; J2704; J3010; J7030; J7120

== ENCOUNTER 2025-01-18 09:23 | Outpatient (CLI) | payer MEDICARE, SELFPAY ==
[2025-01-18 09:45] LABS: Hematocrit 38.9 % (37.0-47.0); Hemoglobin 11.7 g/dL (12.0-15.0); Immature Granulocyte Percent A 0.2 % (0-0.5); Lymphocytes Absolute Auto 2.03 K/mm3 (0.9-3.2); Mean Corpuscular HGB Conc 30.1 g/dl (32-36); Mean Corpuscular Hemoglobin 25.2 pg (26-34); Mean Corpuscular Volume 83.7 fl (80-100); Nucleated Red Blood Cells Absolute Auto 0.000 K/mm3 (0.0-0.012); Nucleated Red Blood Cells Perc 0.0 % (0.0-0.2); Platelet Count Result 337 k/mm3 (150-375); Red Blood Count 4.65 M/mm3 (4.2-5.4); White Blood Count 5.2 K/mm3 (4.5-10.0)
--- OUTSIDE RECORDS SUMMARY | 2025-01-18 10:03 | XMS_ITS | Encounter Summary ---
Author Organization [facility] Address [address] [place] [address] Care Team Providers Care Gambling Dealer Name Role Phone Roby Stafford MD Primary Care Provider [phone] Encounter Details Date Type Department Care Team (Late Contact Info) Description 01/18/2025 Orders Only [facility] Oncology and Hematology - [address] [place] [address] MD [address] [place], [place] [address] [address] [place] [phone] Chronic anemia (Primary Dx) Social History Tobacco Use Types Packs/Day Years Used Date Smoking Tobacco: Former Cigarettes Q uit: 09/26/2022 Smokeless Tobacco: Never Alcohol Use Standard Drinks/Week Comments Not Currently 0 (1 standard drink = 0.6 oz pure alcohol) Not drank in 2-3 years, was social drinker Comments Unknown Sex and Gender Information Value Date Recorded Sex Assigned at Not on file Legal Sex Female 3:20 PM CDT Gender Identity Not on file Sexual Orientation Not on file documented as of this encounter Plan of Treatment Upcoming Encounters Date Type Department Care Team (Late Contact Info) Description 01/20/2025 10:00 AM CDT Office Visit [facility] Oncology and Hematology - [place] [address] [place] [address] MD [facility] [employer] [address] [place] [id number] Scheduled Orders Name Type Priority Associated Diagnoses Orde r Schedule COMPREHENSIVE METABOLIC PANEL Lab Routine Chronic anemia Expected: 01/18/2025, Expires: 01/18/2026 CBC WITH DIFFERENTIAL Lab Routine Chronic anemia Expected: 01/18/2025, Expires: 01/18/2026 IRON, TIBC, AND PERCENT SATURATION Lab Routine Chronic anemia Expected: 01/18/2025, Expires: 01/18/2026 FERRITIN Lab Routine Chronic anemia Expected: 01/18/2025, Expires: 01/18/2026 VITAMIN B12 AND FOLATE Lab Routine Chronic anemia Expected: 01/18/2025, Expires: 01/18/2026 documented as of this encounter Visit Diagnoses Diagnosis Chronic anemia- Primary Anemia, unspecified documented in this encounter Care Teams Gambling Dealer Relationship Specialty Start Date End Date Roby Stafford MD [address] [place] [id number] PCP - General Family Practice 01/01/23 documented as of this encounter
--- OUTSIDE RECORDS SUMMARY | 2025-01-18 10:03 | XMS_ITS | Clinical Summary ---
Author Organization [facility] Address [address] [place] [address] Care Team Providers Care Shake Feeder Name Role Phone Roby Stafford MD Primary Care Provider [phone] Allergies Active Allergy Reactions Criticality Noted Date [...] Encounters Date Type Department Care Team Description 01/18/[address] [facility] Oncology and Hematology - [place] [address] [place] [phone] MD Chronic anemia (Primary Dx) 12/28/2024 External Device Data STL ABSTRACTION Provider, Abstract 12/14/2024 External Device Data STL ABSTRACTION Provider, Abstract 11/10/2024 External Device Data STL ABSTRACTION Provider, Abstract 11/10/2024 External Device Data STL ABSTRACTION Provider, Abstract 11/10/2024 External Device Data STL ABSTRACTION Provider, Abstract 11/09/2024 External Device Data STL ABSTRACTION Provider, Abstract [...] 8:56 AM CDT Height 175.3 cm (5' 9) 01/01/2023 2:42 PM CDT Body Mass Index 23.78 01/01/2023 2:42 PM CDT Plan of Treatment Upcoming Encounters Date Type Department Care Team (Late st Contact Info) Description 01/20/2025 10:00 AM CDT Office Visit [facility] Oncology and Hematology - [place] [address] [facility] [address] [place] [address] MD [address] [facility] [address] [place] [address] Health Maintenance Due Date Last Done Comments DTAP/TDAP/TD VACCINES (1 - Tdap) 1965 PNEUMOCOCCAL VACCINE 50+ YEARS (1 of 1 - PCV) 09/24/18 97 ZOSTER VACCINE (1 of 2) 1996 OSTEOPOROSIS SCREENING 09/25/2011 RSV VACCINE (60+ or ) (1 - 1-dose 75+ series) 2021 Medicare [place]) Prev entative Visit/Annual Wellness Visit 04/28/2024 INFLUENZA VACCINE (#1) 2024 Insurance [facility] [id number] Care Teams Shake Feeder Relationship Specialty Start Date End Date Roby Stafford MD [address] [place] [address] PCP - General Family Practice 01/01/23
--- OUTSIDE RECORDS SUMMARY | 2025-01-18 10:03 | XMS_ITS | Clinical Summary ---
Author Organization [facility] Address [address] [place] [address] Phone Care Team Providers Care Faith Doctor Name Role Phone Roby Stafford MD Primary Care Provider [phone] Allergies Active Allergy Reactions Criticality Noted Date [...] Acute respiratory failure with hypoxia 04/15/2021 04/17/2021 Family History Medical History Relation Name Comments Chronic Obstructive Pulmonary Disease Father Hypertension Mother Relation Name Status Comments Father Mother Social History Tobacco Use Types Packs/Day Years Used Date Smoking Tobacco: Former Cigarettes - 1984 Smokeless Tobacco: Never Tobacco Cessation:Counseling [...] Comments Blood Pressure 119/64 04/17/2021 8:30 AM DATA ENTRY OPERATOR Pulse 80 04/17/2021 8:30 AM DATA ENTRY OPERATOR Temperature 36.4 C (97.5 F) 04/17/2021 8:30 AM DATA ENTRY OPERATOR Respiratory Rate 20 04/17/2021 8:30 AM DATA ENTRY OPERATOR Oxygen Saturation 88% 04/17/2021 8:30 AM DATA ENTRY OPERATOR Inhaled Oxygen Concentration - - Weight 78.5 kg (173 lb) 04/15/2021 8:13 AM DATA ENTRY OPERATOR Height 175.3 cm (5' 9) 04/15/2021 8:13 AM DATA ENTRY OPERATOR Body Mass Index 25.55 04/15/2021 8:13 AM DATA ENTRY OPERATOR Plan of Treatment Health Maintenance Due Date Last Done Comments DEXA Bone Density 1945 Hepatitis C Virus (HCV) Screening 1945 TdaP Immunization 1945 Pneumococcal Immunization (5 0+ years) (1 of 1 - PCV) 1996 Zoster Immunization (1 of 2) 1996 Respiratory Syncytial Virus (RSV) Immunization (Adult) (1 - 1-dose 75+ series) 2021 Influenza Immunization (#1) 2024 SARS-COV-2 Immunization (1 - 2023- season) 2024 Hepatitis B Immunization Aged Out No longer eligible based on patient's age to complete this topic Human Papillomavirus (HPV) Immunization Aged Out No longer eligible b ased on patient's age to complete this topic Meningococcal Immunization (ACWY) Aged Out No longer eligible based on patient's age to complete this topic Rotavirus Immunization Aged Out No lo nger eligible based on patient's age to complete this topic Medical Devices Implanted Type Area Uppers Edge Burnisher Device Identifier Shelf Expiration Date Model / Serial / Lot Stent Ureteral 6fr 2.1fr 26cm 2 Pigtail Curve 2 Durometer Taper Tip Loprfl Graduated Polaris Ultra - [id number] Implanted:Qty: 1 on 02/19/2020 by Monica Marlow MD at [facility] IMPLANT Right: Ureter [employer] 11/10/2022 [id number] / [id number] / [id number] Neprostomy Catheter Percuflex Locking Loop Implanted:Qty: 1 on 02/15/2020 by Monica Marlow MD at [facility] Right: Kidney [employer] UROLOGY 09/21/2021 [id number] / [id number] Insurance [facility] [place] [address] Advance Directives * Full Code (Latest Code [...] measures to stabilize the patient. Care Teams Faith Doctor Relationship Specialty Start Date End Date Roby Stafford MD [address] [address] PCP - General Family Medicine 01/19/20
--- OUTSIDE RECORDS SUMMARY | 2025-01-18 10:03 | XMS_ITS | Encounter Summary ---
Author Organization [facility] Address [address] [place] [address] Care Team Providers Care Numerical Control Machine Tool Operator Name Role Phone Roby Stafford MD Primary Care Provider [phone] MD Unavailable [phone] Encounter Details Date Type Department Care Team (Late Contact Info) Description 08/06/2016 Orders Only [facility] ProviderMaria Eugenia MD [address] [place] [address] Social History Tobacco Use Types Packs/Day Years Used Date Smoking Tobacco: Never Alcohol Use Standard Drinks/Week Comments Yes 0 (1 standard drink = 0.6 oz pur e alcohol) Comments Unknown Sex and Gender Information Value Date Recorded Sex Assigned at Not on file Legal Sex Female 10:47 AM CANDY PULLER Gender Identity Not on file Sexual Orientation [...] on filedocumented in this encounter Care Teams Numerical Control Machine Tool Operator Relationship Specialty Start Date End Date Roby Stafford MD PCP - General 07/26/[address] MD [address] [id number] Referring Physician Hematology 07/08/23 documented as of this encounter
--- OUTSIDE RECORDS SUMMARY | 2025-01-18 10:03 | XMS_ITS | Clinical Summary ---
Author Organization [facility] [address] Address [address] [place] [address] Care Team Providers Care Mechanical Handyman Name Role Phone Roby Stafford MD Primary Care Provider Mushtaq St MD Unavailable [phone] Allergies Active Allergy Reactions Criticality Noted Date Comments Albuterol Other (See comments) Medium 05/17/2017 Patient states inhalers make her more tight in chest. Patient states inhalers make her more tight in chest. Patient states inhalers make her more tight in chest. Azithromycin Unknown 01/01/2023 Iodinated Contrast Media Unknown 02/18/2020 Iron Unknown 01/10/2021 Medications multivitamin tablet Take 1 tablet by mouth daily Active levothyroxine (SYNTHROID) 112 mcg tabletIndications:P ostoperative hypothyroidism TAKE 1 TABLET BY MOUTH EVERY DAY 90 tablet 3 5 Active Active Problems Problem Noted Date Diagnosed Date BMI 29.0-29.9,adult 07/02/2022 Assessment & Plan (07/02/2022 10:19 AM CENTRAL OFFICE SUPERVISOR): Discussed healthy diet and importance of regular physical activity (20- 30min/day, 150min/wk). COVID-19 04/15/2021 Microcytic anemia 04/15/2021 Calculus of kidney 02/15/2020 Postoperative hypothyroidism 03/04/2017 Assessment & Plan (07/06/2024 9:38 AM CDT): Chronic problem. Currently taking levothyroxine 112 mcg daily. Aware to take 1st thing in morning, 30-60 minutes before food/drink/other medications. Will update labs today. Verified phone #/address to contact re: results. Assessment & Plan (07/08/2023 5:38 PM CDT): Chronic, stable Update TFTs Continue levothyroxine Importance of taking the medication on an empty stomach was discussed Assessment & Plan (07/02/2022 10:26 AM CENTRAL OFFICE SUPERVISOR): Chronic problem. Currently taking levothyroxine 100mcg daily. Will update labs today. Verified phone #/address to contact re: results. Will send in 90 day with refills to [facility] in [place]. Assessment & Plan (05/17/2021 2:44 PM CENTRAL OFFICE SUPERVISOR): Chronic problem, stable. Check labs today and adjust LT4 dose as indicated. Reviewed that with weight loss sometimes dose adjustment is needed. Assessment & Plan (03/02/2020 1:19 PM CENTRAL OFFICE SUPERVISOR): Thyroid function tests, including TSH and free [...] taken. Assessment & Plan (03/04/2019 2:08 PM CENTRAL OFFICE SUPERVISOR): Will check TSH and free T4 Will adjust dose of Levothyroxine accordingly . If there is a need to make changes, will recheck levels in 2-3 months. Instructions to patient on taking medication properly : in the morning, on an empty stomach , 1 h part from food and/or other meds. Assessment & Plan (03/03/2018 10:01 AM CENTRAL OFFICE SUPERVISOR): Will check TSH and free T4 Will [...] taken. Assessment & Plan (03/04/2017 9:23 AM CENTRAL OFFICE SUPERVISOR): Check TSH, free T4 Adjust dose of [...] on file Legal Sex Female 10:47 AM CENTRAL OFFICE SUPERVISOR Gender Identity Not on file Sexual Orientation Not on file Obstetrics History Last Filed Vital Signs Vital Sign Reading Time Taken Comments Blood Pressure 100/72 07/06/2024 9:24 AM CDT Pulse 72 07/06/2024 9:24 AM CDT Temperature - - Respiratory Rate 14 07/06/2024 9:24 AM CDT Oxygen Saturation - - Inhaled Oxygen Concentration - - Weight 79.8 kg (176 lb) 07/06/2024 9:24 AM CDT Height 172.7 cm (5' 7.99) 07/06/2024 9:24 AM CD T Body Mass Index 26.77 07/06/2024 9:24 AM CDT Plan of Treatment Health Maintenance Due Date Last Done Comments Fall Risk Assessment 1945 Hepatitis C Screening 1945 Osteoporosis Screening-Bone Density Scan 1945 DTaP/Tdap/Td Vaccine (1 - Tdap) 1957 Hepatitis B Screening 1964 Pneumococcal vaccine 65+ (1 of 1 - PCV) 1996 Zoster Vaccine (1 of 2) 1996 Well Visit 65+ 09/25/2011 Depression Screening 03/02/2021 03/02/2020, 03/04/20 19 Influenza Vaccine (#1) 2024 Insurance MEDICARE ADVANTAGE MEDICARE ADVANTAGE Care Teams Mechanical Handyman Relationship Specialty Start Date End Date Roby Stafford MD PCP - General 07/26/[address] MD [address] [phone] Referring Physician Hematology 07/08/23
--- OUTSIDE RECORDS SUMMARY | 2025-01-18 10:03 | XMS_ITS | Clinical Summary ---
Author Organization [facility] Address [address] [place] [address] Care Team Providers Care Software Development Specialist Name Role Phone Roby Stafford MD Primary Care Provider [phone] Source Comments [facility],non-owned Affiliates and Associated Physician Practices is amultiple site organization consisting of ambulatory clinics and hospital sitesin [place], [place], [place] and [place]. This disclosure is being madepursuant to the Care Everywhere program and may not contain all information available regarding this patient. Last updated 18.[facility] Allergies Active Allergy Reactions Criticality Noted Date Comments Albuterol Other Medium 05/17/2017 Patient states inhalers make her more tight in chest. Medications * Be aware that medications may not be up to date on this document. Alwaysverify current medications with the patient. LEVOTHYROXINE SODIUM PO Active methylPREDNISol one (MEDROL DOSEPAK) 4 MG tablet Take by mouth as directed 1 Each 05/17/2017 Active benzonatate (TESSALON) 100 MG capsuleIndicati ons:Cough Take 1 capsule by mouth 3 times daily as needed for Cough Reasons: Cough 30 capsule 05/29/2017 Active Social History Tobacco Use Types Packs/Day Years Used Date Smoking Tobacco: Former Smokeless Tobacco: Never Comments No Sex and Gender Information Value Date Recorded Sex Assigned at Not on file Legal Sex Female 11:47 AM CERTIFIED DENTAL ASSISTANT Gender Identity Not on file Sexual Orientation Not on file Last Filed Vital Signs Vital Sign Reading Time Taken Comments Blood Pressure 120/68 05/29/2017 10:29 AM CERTIFIED DENTAL ASSISTANT Pulse 84 05/29/2017 10:29 AM CERTIFIED DENTAL ASSISTANT Temperature 36.6 C (97.9 F) 05/29/2017 10:29 AM CERTIFIED DENTAL ASSISTANT Respiratory Rate - - Oxygen Saturation 96% 05/29/2017 10:29 AM CERTIFIED DENTAL ASSISTANT Inhaled Oxygen Concentration - - Weight 81.6 kg (180 lb) 05/29/2017 10:29 AM CERTIFIED DENTAL ASSISTANT Height 175.3 cm (5' 9) 05/29/2017 10:29 AM CERTIFIED DENTAL ASSISTANT Body Mass Index 26.58 05/29/2017 10:29 AM CERTIFIED DENTAL ASSISTANT Plan of Treatment Health Maintenance Due Date Last Done Comments BONE DENSITY TESTING 1945 HEPATITIS C SCREENING 09/19/1964 DTAP/TDAP/TD VACCINES (1 - Tdap) 1965 PNEUMOCOCCAL VACCINE 50+ (1 of 1 - PCV) 1996 ZOSTER VACCINE (1 of 2) 1996 SCREENING FOR DIABETES 05/17/2017 Respiratory Syncytial Virus (RSV) Vaccine Pt: or over 60 yrs (1 - 1-dose 75+ series) 2021 DEPRESSION SCREENING 04/28/2024 COVID-19 VACCINE (1 - 2023-2 5 season) 2024 INFLUENZA VACCINE (#1) 2024 HEPATITIS B VACCINE Aged Out No longe r eligible based on patient's age to complete this topic HIB VACCINE Aged Out No longer eligi ble based on patient's age to complete this topic HPV VACCINE Aged Out No longer eligi ble based on patient's age to complete this topic MENINGOCOCCAL (Group B) VACC INE SHARED DECISION-MAKING Aged Out No longer eligibl e based on patient's age to complete this topic MENINGOCOCCAL GROUPS A/C/Y/W VACCINE Aged Out No longer eligible b ased on patient's age to complete this topic Insurance [facility] MANAGED MEDICARE ADV Care Teams Software Development Specialist Relationship Specialty Start Date End Date Roby Stafford MD [address] [place] [address] PCP - General 03/14/20
[2025-01-18 10:44] LABS: Alanine Aminotransferase 12 U/L (6-35); Albumin Level 4.1 g/dL (3.5-5.1); Alkaline Phosphatase 71 U/L (38-126); Anion Gap 7 mmol/L (4-12); Aspartate Amino Transferase 27 U/L (14-36); Bilirubin,Total 0.5 mg/dL (0.2-1.3); Blood Urea Nitrogen 9 mg/dL (7-17); Calcium 9.0 mg/dL (8.4-10.2); Carbon Dioxide 28 mmol/L (22-30); Chloride 103 mmol/L (98-107); Estimated Glomerular Filt Rate > 60; Glucose 114 mg/dL (65-110); Potassium 4.3 mmol/L (3.4-5.0); Sodium 138 mmol/L (137-145); Total Protein 7.2 g/dL (6.3-8.2)
[2025-01-18 10:58] LABS: Iron 26 ug/dL (37-170)
[2025-01-18 11:07] LABS: Percent Iron Saturation 6 % (20-50)
[2025-01-18 11:40] LABS: Ferritin 6.48 ng/mL (11.1-264)
[2025-01-18 12:02] LABS: Vitamin B12 853.0 pg/mL (239-931)
== END 2025-01-18 09:24 | disposition home or self-care (01) ==
LOC: ANHLAB 09:25
PROVIDERS: PCP Family Medicine; Visit Provider Internal Medicine Hematology & Oncology
DX: D64.9 Anemia, unspecified (principal)
CPT/HCPCS: 36415; 80053; 82607; 82728; 82746; 83540; 83550; 85025